=== PATIENT | female | born 1995 | race Caucasian/White ===

== ENCOUNTER 2020-06-11 18:29 | Emergency (ER) | payer SELFPAY ==
[2020-06-11 18:30] VITALS: BP 151/114; PULSE 97; RESP 18; TEMP 36.4; O2SAT 100; BMI 24.7
--- NOTE | 2020-06-11 18:37 | W.ED.SKABFB ---
HPI - Skin/Abscess/Foreign Bdy General: Chief complaint: Skin/Abscess/Foreign Body Stated complaint: rash Time Seen by Provider: 06/11/20 18:32 Source: patient Mode of arrival: ambulatory Limitations: no limitations History of Present Illness: HPI narrative: Patient is a 25-year-old female who presents to ED today for evaluation of a rash. Patient tells me earlier today she began noticing some itching to the back of her neck and states throughout the day she has progressed to having a full body pruritic rash. Patient cannot identify any household, chemical, environmental, work exposures that she could have been allergic to. She is not having any facial or oral swelling, difficulty breathing, difficulty swallowing. She has no other complaints apart from the rash at this time. MD complaint: rash Onset (ago): hour(s) Tetanus up to date: yes Location: generalized Severity: severe Quality: pruritic Pain Consistency: constant Relieving factors: none Exacerbating factors: none Context: none Associated symptoms: Reports no associated symptoms; Deny chills, fever(s), nausea or vomiting Treatments prior to arrival: none Review of Systems Const: Denies: fever(s), chills, body aches, fatigue, malaise or diaphoresis Eyes: Denies: change in vision ENMT: Denies: odynophagia, swelling of lips/tongue, oral sores, nasal congestion or sinus pain Card: Denies: chest pain Resp: Denies: dyspnea GI: Denies: nausea or vomiting Musc: Denies: neck pain, back pain or extremity pain Skin/Breast: Reports: rash and pruritus Neuro: Denies: headache(s) Physical Exam Const: COMMON NORMALS: average body habitus, patient oriented x3, no limitations, healthy appearing, alert and well nourished GENERAL APPEARANCE: cooperative and in distress (diffuse pruritic rash) ORIENTATION/CONSCIOUSNESS: Yes oriented to person, Yes oriented to place and Yes oriented to time HENMT: COMMON NORMALS: normocephalic and atraumatic HEAD & SCALP: normocephalic and atraumatic Eye: GENERAL EYE: appearance normal, both eyes and all related structures Neck/C-Spine: COMMON NORMALS: full ROM and no lymphadenopathy GENERAL: Yes normal visual inspection Resp: COMMON NORMALS: normal respiratory effort and clear to auscultation bilaterally AUSCULTATION: clear to auscultation bilaterally Cardio: COMMON NORMALS: regular rate and regular rhythm RATE: regular rate RHYTHM: regular rhythm Neuro: COMMON NORMALS: patient oriented x3 SENSORIUM/ORIENTATION: Yes alert, Yes oriented to person, Yes oriented to place and Yes oriented to time Skin: NARRATIVE SKIN EXAM: diffuse urticaria Course Vital Signs: Vital signs: Vital Signs Temperature 97.5 F L 06/11/20 18:30 Pulse Rate 97 06/11/20 18:30 Respiratory Rate 18 06/11/20 18:30 Blood Pressure 151/114 06/11/20 18:30 Pulse Oximetry 100 06/11/20 18:30 MDM - Skin/Abscess/Foreign Bdy MDM Narrative: Medical decision making narrative: Patient's rash and itchiness improved after benadryl, solu-medrol, and pepcid. Patient is stable for DC at this time. Discharge Plan Discharge Patient Disposition: Home Clinical Impression: Urticaria Condition: Stable Discharge Orders: Discharge Order (Routine); Ordered 06/11/20 Ordered By: Gem Márquez Referrals: Socrates Cisneros MD [Primary Care Provider] - Patient Instructions: Urticaria, Urticaria (ED) Activity Restrictions/Additional Instructions: As discussed you can continue taking 50 mg Benadryl every 6 hours as needed for rash and itching. Please follow-up with your primary care provider in 3 to 4 days for continued rash. Return to the emergency department for any blister formation, difficulty swallowing, difficulty breathing, swelling to your lips or mouth, fevers, any other concerns you may have. Coding Level of Care Code ED Safety Compliance Specialist for Cherylg Fwd Exam Detailed
[2020-06-11] MEDS: famotidine 20 mg/2 mL INJ 40 MG IVP (19:05)
[2020-06-11] MEDS: diphenhydrAMINE 50 mg/mL SDV 1mL IVP (19:05)
[2020-06-11 19:55] VITALS: BP 145/94; PULSE 75; RESP 14; O2SAT 100
== END 2020-06-11 19:56 | disposition home or self-care (01) ==
PROVIDERS: Emergency Provider Physician Assistant; PCP Family Medicine
DX: L50.9 Urticaria, unspecified (principal)
CPT/HCPCS: 12345; 96374; 96375; 99282; 99283; J1200; J2930; J3490

== ENCOUNTER 2020-06-13 14:12 | Emergency (ER) | payer SELFPAY ==
[2020-06-13 14:15] VITALS: PULSE 81; RESP 16; TEMP 36.6; O2SAT 99; BMI 24.7
--- NOTE | 2020-06-13 14:23 | ED_ITS ---
HPI - Allergic Reaction General: Chief complaint: Allergic Reaction Stated complaint: RASH Time Seen by Provider: 06/13/20 14:14 History of Present Illness: HPI narrative: Patient seen here at the ER Thursday treated for urticaria was given a shot of steroids place [id number] Benadryl patient seen in urgent care today patient says she is not any better having abdominal pain which she said she has had for about a month gets sick after eating about an hour or 2 afterwards. Patient still having hives itching everywhere. Has not found the source of what might be causing her urticaria. Patient says she just uncomfortable. complaint: allergic reaction and hives Onset (ago): day(s) Exposure: unknown Associated symptoms: Reports abdominal pain (For the last month she said she just take 1 or 2 bites and would get sick to her stomach complains about pain upper abdomen), itching and rash Severity: moderate Treatment prior to arrival: benadryl and steroids Previous Allergic Reaction History: prior ED visit(s) Review of Systems Const: Denies: fever(s), chills or body aches Eyes: Denies: change in vision or blurry vision ENMT: Denies: throat pain or nasal congestion Card: Denies: chest pain or dyspnea on exertion Resp: Denies: dyspnea, productive cough or non-productive cough GI: Reports: abdominal pain (For the last month she said she just take 1 or 2 bites and would get sick to her stomach complains about pain upper abdomen) : Reports: other (Is sexually active not on control) Musc: Denies: extremity pain Skin/Breast: Reports: rash and pruritus Neuro: Denies: headache(s) Psych: Denies: anxiety or depression Jaime/Lymph: Denies: easy bruising [facility] ED PFSH: Social History (Updated 06/13/20 @ 13:56 by Devorah Gutiérrez LPN) Smoking and tobacco status: never smoked Physical Exam Const: COMMON NORMALS: no acute distress, average body habitus and patient norman ented x3 HENMT: COMMON NORMALS: normocephalic HEAD & SCALP: normal to inspection and normocephalic FACE & SINUS: normal facial exam Eye: COMMON NORMALS: conjunctivae normal GENERAL EYE: appearance normal, both eyes and all related structures CONJUNCTIVA: Yes conjunctivae normal Neck/C-Spine: COMMON NORMALS: no JVD Chest: COMMONS NORMALS: normal inspection of the chest Resp: COMMON NORMALS: normal respiratory effort and clear to auscultation bilaterally AUSCULTATION: clear to auscultation bilaterally Cardio: COMMON NORMALS: no JVD, regular rate and regular rhythm RATE: regular rate RHYTHM: regular rhythm GI: COMMON NORMALS: Normal to inspection, nondistended, normoactive bowel sounds present Extremity: COMMON NORMALS: normal to inspection and full ROM Neuro: COMMON NORMALS: patient oriented x3 Skin: NARRATIVE SKIN EXAM: Has a large amount of maculopapular red rash scattered about strongly resembling hives or urticaria Course Vital Signs: Vital signs: Vital Signs Temperature 97.8 F 06/13/20 14:15 Pulse Rate 81 06/13/20 14:15 Respiratory Rate 16 06/13/20 14:15 Pulse Oximetry 99 06/13/20 14:15 Discharge Plan Discharge Prescriptions: No Action No Known Home Medications RF: 0 Coding Level of Care Code ED Predatory Animal Trapper for Vane Santizo
[2020-06-13 14:29] VITALS: BP 133/86; PULSE 82; RESP 16; O2SAT 99
--- NOTE | 2020-06-13 14:29 | CTR_ITS ---
PROCEDURE INFORMATION: Exam: CT Abdomen And Pelvis With Contrast Exam date and time: 06/13/2020 3:02 PM Age: 25 years old Clinical indication: Abdominal pain; Additional info: Abd pain TECHNIQUE: Imaging protocol: Computed tomography of the abdomen and pelvis with intravenous contrast. Radiation optimization: All CT scans at this facility use at least one of these dose optimization techniques: automated exposure control; mA and/or kV adjustment per patient size (includes targeted exams where dose is matched to clinical indication); or iterative reconstruction. Contrast material: OMNI 300; Contrast volume: 95 ml; Contrast route: INTRAVENOUS (IV); COMPARISON: CT Abdomen/Pelvis Renal [id number] 04/17/2015 11:34 PM RADIATION DOSE METRICS: Total DLP (mGy-cm): 509.14 FINDINGS: Liver: Normal. No mass. Gallbladder and bile ducts: Normal. No calcified stones. No ductal dilation. Pancreas: Normal. No ductal dilation. Spleen: Normal. No splenomegaly. Adrenals: Normal. No mass. Kidneys and ureters: One or more focal cortical defects in the right kidney, representing sequela from previous infection or infarction. One or more focal cortical defects in the left kidney, representing sequela from previous infection or infarction. Stomach and bowel: Unremarkable. No obstruction. No mucosal thickening. Appendix: Normal appendix. Intraperitoneal space: Unremarkable. No free air. No significant fluid collection. Vasculature: Unremarkable. No abdominal aortic aneurysm. Lymph nodes: Unremarkable. No enlarged lymph nodes. Bladder: Unremarkable as visualized. Reproductive: Unremarkable as visualized. Bones/joints: Unremarkable. No acute fracture. Soft tissues: Unremarkable. CT/CT abdomen pelvis w con* [id number] IMPRESSION: 1. One or more focal cortical defects in the right kidney, representing sequela from previous infection or infarction. 2. One or more focal cortical defects in the left kidney, representing sequela from previous infection or infarction. Radiation Dose CTDIVOL = (mGy): DLP = 509.14 (mGy-cm)
[2020-06-13] MEDS: hyDROXYzine 25 mg Capsule PO (14:42)
[2020-06-13] MEDS: sodium chloride 0.9% 1,000 ML 999 ML IV (14:55)
[2020-06-13 15:22] LABS: Basophils % 0.2 %; Eosinophils % 0.2 %; Hemoglobin 13.7 g/dL (11.5-15.3); Lymphocytes # 2.1 10^3/uL (0.8-4.8); Lymphocytes % 17.1 %; Mean Corpuscular HGB Conc 32.6 g/dL (30.0-36.0); Mean Corpuscular Hemoglobin 29.7 pg (28.0-34.0); Mean Corpuscular Volume 90.9 fL (81-99); Mean Platelet Volume 10.3 fL (7.4-10.4); Monocytes # 0.5 10^3/uL (0.2-0.9); Monocytes % 4.1 %; Neutrophils # 9.49 10^3/uL (1.8-7.7); Neutrophils % 77.9 %; Nucleated Red Blood Cells % 0 %; Platelet Count 243 10^3/cmm (130-400); Red Blood Count 4.62 10^6/uL (4.1-5.3); Red Cell Distribution Width 12.3 % (12.1-15.1); White Blood Count 12.2 10^3/uL (4.0-10.0)
[2020-06-13 15:26] LABS: Add Urine Microscopic? YES; Bilirubin Urine Neg (NEGATIVE); Blood Urine 2+ (Negative); Glucose Urine UA Norm (Normal); Ketones Urine Negative (Negative); Nitrate Urine Negative (Negative); Protein Urine Neg (Negative); Specific Gravity, Urine 1.025 (1.005-1.030); Urine Appearance Cloudy (CLEAR); Urine Color Yellow (Yellow); Urobilinogen Urine Norm (Negative); pH Urine 5 (5-7)
[2020-06-13 15:34] LABS: Leukocyte Esterase Urine 2+ (Negative)
[2020-06-13 15:35] LABS: Add Urine Culture? No; Bacteria Urine 3+; WBC Urine 25-40 /hpf (0-5)
[2020-06-13 15:47] VITALS: BP 136/97; PULSE 76; RESP 15; O2SAT 98
[2020-06-13 15:49] LABS: HCG, Serum Qual Negative (Negative)
[2020-06-13 15:51] LABS: Alanine Aminotransferase 17 U/L (0-33); Albumin Level 4.3 g/dL (3.5-5.2); Alkaline Phosphatase 55 IU/L (35-105); Anion Gap 13.9 (5-19); Aspartate Amino Transferase 14 U/L (0-32); Blood Urea Nitrogen 16 mg/dL (6-20); Calcium 8.9 mg/dL (8.5-10.5); Carbon Dioxide 25 mmol/L (22-29); Chloride 105 mmol/L (98-107); Globulin 3.1 g/dL (1.3-4.6); Glomerular Filtration Rate 49.5 mL/min (90-130); Glucose 90 mg/dL (65-115); Lipase 16 U/L (13-60); Osmolality Calculated 286 mOsm/kg (285-295); Potassium 3.9 mmol/L (3.5-5.1); Sodium 140 mmol/L (136-145); Total Bilirubin 0.8 mg/dL (0.15-1.2); Total Protein 7.4 g/dL (6.6-8.7)
[2020-06-13] MEDS: iohexol 300 mg/mL 100 mL Btl IV (16:26)
[2020-06-13 17:07] VITALS: BP 146/82; PULSE 80; RESP 16; O2SAT 97
== END 2020-06-13 17:07 | disposition home or self-care (01) ==
PROVIDERS: Emergency Provider Nurse Practitioner Family; PCP Family Medicine
DX: R21 Rash and other nonspecific skin eruption (principal)
CPT/HCPCS: 12345; 36415; 74177; 80053; 81001; 83690; 84703; 85025; 96361; 96374; 96375; 99283; J2930; J7030; Q9967

== ENCOUNTER → 2020-10-17 15:30 | Outpatient (BNVA) | payer MEDICAID, SELFPAY | PROVIDERS: PCP Family Medicine; Visit Provider Obstetrics & Gynecology | DX: Z12.4 Encounter for screening for malignant neoplasm of cervix (principal) | CPT/HCPCS: 88175 ==

== ENCOUNTER 2020-10-24 03:54 | Emergency (ER) | payer MEDICAID, SELFPAY ==
[2020-10-24 03:59] VITALS: BP 166/105; PULSE 85; RESP 16; TEMP 36.8; O2SAT 98; BMI 21.1
--- NOTE | 2020-10-24 04:06 | W.ED.ABDPA2 ---
HPI - Abdominal Pain General: Chief Complaint: Abdominal Pain Stated Complaint: ab pain, cramps, just found out preg Time Seen by Provider: 10/24/20 03:57 Source: patient Mode of arrival: ambulatory Limitations: no limitations History of Present Illness: HPI narrative: 25-year-old female who is roughly 67 weeks . She states she has been having abdominal cramping over the last week and has not been able to get into an OB until week. States her pain is a 4 out of 10 currently. She has had nausea over the last 2 to 3 weeks with no vomiting. She denies any vaginal bleeding or discharge. Denies any worsening improving factors. Associated Symptoms: Denies chills, dysuria and fever(s) Review of Systems Const: Denies: fever(s), chills, body aches or change in appetite Eyes: Denies: blurry vision or eye discomfort ENMT: Denies: throat pain or dental pain Card: Denies: chest pain Resp: Denies: dyspnea GI: Reports: abdominal pain : Denies: dysuria Musc: Denies: neck pain or back pain Skin/Breast: Denies: rash Neuro: Denies: headache(s) Psych: Denies: depression Jaime/Lymph: Denies: easy bruising All/Imm: Denies: urticaria PFSH ED PFSH: Medical History (Updated 10/24/20 @ 05:08 by Amol Bautista MD) No pertinent past medical history Denies diabetes, asthma, hypertension, seizures, DVT/PE PCP: Dr. Cisneros Surgical History (Updated 10/21/20 @ 08:49 by Mavis Rm MD) No history of previous surgery Family History (Updated 10/21/20 @ 08:49 by Mavis Rm MD) Grandmother Diabetes paternal Family/Other Uterine cancer maternal great aunt, diagnosed in her 50s Denies family history of Colon cancer Ovarian cancer Heart disease Hyperlipidemia Breast cancer Hypertension Thyroid condition Stroke Social History (Updated 06/13/20 @ 13:56 by Devorah Gutiérrez LPN) Smoking and tobacco status: never smoked Physical Exam Const: COMMON NORMALS: no acute distress, patient oriented x3 and healthy appearing HENMT: COMMON NORMALS: normocephalic and atraumatic HEAD & SCALP: normocephalic and atraumatic Eye: COMMON NORMALS: Equal, round and reactive pupils present and EOMs intact bilaterally PUPIL: Yes Equal, round and reactive pupils present Neck/C-Spine: COMMON NORMALS: full ROM and supple Chest: COMMONS NORMALS: normal inspection of the chest and normal palpation of entire chest wall Resp: COMMON NORMALS: normal respiratory effort, No retractions, No use of accessory muscles and clear to auscultation bilaterally AUSCULTATION: clear to auscultation bilaterally Cardio: COMMON NORMALS: regular rate, regular rhythm and No murmurs present (Cardio) RATE: regular rate RHYTHM: regular rhythm GI: COMMON NORMALS: Normal to inspection, nondistended, normoactive bowel sounds present, Soft to palpation, non-tender and no masses PALPATION: Yes Soft to palpation Extremity: COMMON NORMALS: normal to inspection and full ROM Neuro: COMMON NORMALS: patient oriented x3, moves all extremities and no focal motor deficits Psych: COMMON NORMALS: mental status grossly normal, Normal thought process present and cooperative THOUGHT PROCESS: Normal thought process present Skin: COMMON NORMALS: no rashes or lesions noted and no wounds GENERAL SKIN EXAM: no rashes or lesions noted Course Vital Signs: Vital signs: Vital Signs Temperature 98.2 F 10/24/20 03:59 Pulse Rate 85 10/24/20 03:59 Respiratory Rate 16 10/24/20 03:59 Blood Pressure 166/105 10/24/20 03:59 Pulse Oximetry 98 10/24/20 03:59 MDM - Abdominal Pain MDM Narrative: Medical decision making narrative: Yessica presents here in early . Ultrasound showed a gestational sac. She is to have a repeat quantitative in 2 to 4 days. She also has a urinary tract infection will treat with Keflex. She had no vomiting but has had nausea and we will treat her with Reglan. She is return if worsening. Lab Data: Labs: Lab Results 10/24/20 10/24/20 10/24/20 Range/Units 04:10 04:10 04:10 WBC 8.9 (4.0-10.0) 10^3/ uL RBC 4.17 (4.1-5.3) 10^6/u L Hgb 12.3 (11.5-15.3) g/dL Hct 37.0 (37.0-47.0) % MCV 88.7 (81-99) fL MCH 29.5 (28.0-34.0) pg MCHC 33.2 (30.0-36.0) g/dL RDW 12.0 L (12.1-15.1) % Plt Count 224 (130-400) 10^3/c mm MPV 10.5 H (7.4-10.4) fL Neut % (Auto) 63.2 % Lymph % (Auto) 28.4 % Freestone % (Auto) 7.0 % Eos % (Auto) 0.8 % Baso % (Auto) 0.3 % Neut # (Auto) 5.59 (1.8-7.7) 10^3/u L Lymph # (Auto) 2.5 (0.8-4.8) 10^3/u L Freestone # (Auto) 0.6 (0.2-0.9) 10^3/u L Eos # (Auto) 0.1 (0.0-0.8) 10^3/u L Baso # (Auto) 0.0 (0.0-0.1) 10^3/u L Nucleated RBC % (a uto) 0 % Nucleated RBCs # 0.0 /100WBC Sodium 136 (136-145) mmol/L Potassium 3.2 L (3.5-5.1) mmol/L Chloride 103 (98-107) mmol/L Carbon Dioxide 22 (22-29) mmol/L Anion Gap 14.2 (5-19) BUN 13 (6-20) mg/dL Creatinine 0.8 (0.5-0.9) mg/dL GFR Calculation 86.7 L (90-130) mL/min Glucose 93 (65-115) mg/dL Calculated Osmolal ity 282 L (285-295) mOsm/k g Lactate (0.5-2.2) mmol/L Calcium 8.8 (8.5-10.5) mg/dL Total Bilirubin 0.6 (0.15-1.2) mg/dL AST 15 (0-32) U/L ALT 14 (0-33) U/L Alkaline Phosphata se 51 (35-105) IU/L Total Protein 7.1 (6.6-8.7) g/dL Albumin 4.2 (3.5-5.2) g/dL Globulin 2.9 (1.3-4.6) g/dL Lipase 31 (13-60) U/L Ser , Cristofer i-Qnt 2268.00 mIU/mL Urine Color Yellow (Yellow) Urine Appearance Hazy A (CLEAR) Urine pH 5.0 (5-7) Ur Specific Gravit y 1.020 (1.005-1.030) Urine Protein Neg (Negative) Urine Glucose (UA) Norm (Normal) Urine Ketones Negative (Negative) Urine Blood 2+ H (Negative) Urine Nitrate Positive H (Negative) Urine Bilirubin Neg (Negative) Urine Urobilinogen Norm (Negative) mg/dL Ur Leukocyte Celia ase 2+ H (Negative) Urine RBC 0-4 H (0-2) /hpf Urine WBC 15-25 H (0-5) /hpf Ur Squamous Epith Cells 5-10 H (0-5) /hpf Amorphous Sediment Not Reportable Urine Bacteria 3+ H (NONE) /hpf 10/24/20 Range/Units 04:35 WBC (4.0-10.0) 10^3/ uL RBC (4.1-5.3) 10^6/u L Hgb (11.5-15.3) g/dL Hct (37.0-47.0) % MCV (81-99) fL MCH (28.0-34.0) pg MCHC (30.0-36.0) g/dL RDW (12.1-15.1) % Plt Count (130-400) 10^3/c mm MPV (7.4-10.4) fL Neut % (Auto) % Lymph % (Auto) % Freestone % (Auto) % Eos % (Auto) % Baso % (Auto) % Neut # (Auto) (1.8-7.7) 10^3/u L Lymph # (Auto) (0.8-4.8) 10^3/u L Freestone # (Auto) (0.2-0.9) 10^3/u L Eos # (Auto) (0.0-0.8) 10^3/u L Baso # (Auto) (0.0-0.1) 10^3/u L Nucleated RBC % (a uto) % Nucleated RBCs # /100WBC Sodium (136-145) mmol/L Potassium (3.5-5.1) mmol/L Chloride (98-107) mmol/L Carbon Dioxide (22-29) mmol/L Anion Gap (5-19) BUN (6-20) mg/dL Creatinine (0.5-0.9) mg/dL GFR Calculation (90-130) mL/min Glucose (65-115) mg/dL Calculated Osmolal ity (285-295) mOsm/k g Lactate 0.5 (0.5-2.2) mmol/L Calcium (8.5-10.5) mg/dL Total Bilirubin (0.15-1.2) mg/dL AST (0-32) U/L ALT (0-33) U/L Alkaline Phosphata se (35-105) IU/L Total Protein (6.6-8.7) g/dL Albumin (3.5-5.2) g/dL Globulin (1.3-4.6) g/dL Lipase (13-60) U/L Ser , Cristofer i-Qnt mIU/mL Urine Color (Yellow) Urine Appearance (CLEAR) Urine pH (5-7) Ur Specific Gravit y (1.005-1.030) Urine Protein (Negative) Urine Glucose (UA) (Normal) Urine Ketones (Negative) Urine Blood (Negative) Urine Nitrate (Negative) Urine Bilirubin (Negative) Urine Urobilinogen (Negative) mg/dL Ur Leukocyte Celia ase (Negative) Urine RBC (0-2) /hpf Urine WBC (0-5) /hpf Ur Squamous Epith Cells (0-5) /hpf Amorphous Sediment Urine Bacteria (NONE) /hpf Discharge Plan Discharge Patient Disposition: Home Clinical Impression: Acute cystitis Qualifiers: Hematuria presence: without hematuria Qualified Code(s): N30.00 - Acute cystitis without hematuria Qualifiers: Weeks of gestation: less than 8 weeks Qualified Code(s): Z3A.01 - Less than 8 weeks gestation of Condition: Stable Prescriptions: New Keflex 500 mg capsule 500 mg PO Q6H 7 Days Qty: 28 RF: 0 Reglan 10 mg tablet 10 mg PO Q6H PRN (Reason: nausea and vomiting) Qty: 20 RF: 0 Discharge Orders: Discharge ED (Routine); Ordered 10/24/20 Ordered By: Amol Bautista Referrals: Socrates Cisneros MD [Primary Care Provider] - Discharge Diet: Advance as tolerated Discharge Activity: Resume usual activity Patient Instructions: (ED), Urinary Tract Infection in Women (ED) Coding Level of Care Code ED Battery Container Tester Aluminum for Vane Fwd Exam Comprehensive
--- NOTE | 2020-10-24 04:18 | US_ITS ---
WS: [id number] ULTRASOUND EARLY TECHNIQUE: Transabdominal sonography of the pelvis was performed. Followed by transvaginal sonography to better evaluate the uterus and ovaries. CLINICAL INFORMATION: abdominal pain LMP: 09/12/2020 Beta hCG: Unknown. COMPARISON: None. FINDINGS: UTERUS AND GESTATIONAL SAC Intrauterine gestations: Intrauterine gestational sac. Cardiac activity not yet visualized in this ve ry early . Estimated gestational age: 5w2d Subchorionic hemorrhage: None. OVARIES Right ovary: Normal. Left ovary: Left ovarian cyst measuring 1.9 x 1.8 cm FREE FLUID None. US/US OB lmt with transvaginal IMPRESSION: 1. Intrauterine gestational sac. Cardiac activity not yet visualized in this v rodolfo early . Recommend short interval follow-up.. 2. Estimated gestational age; 5w2d. Estimated delivery June 24, 2021 3. Simple left ovarian cyst. Normal right ovary.
[2020-10-24 04:27] LABS: Basophils % 0.3 %; Eosinophils # 0.1 10^3/uL (0.0-0.8); Eosinophils % 0.8 %; Hemoglobin 12.3 g/dL (11.5-15.3); Lymphocytes # 2.5 10^3/uL (0.8-4.8); Lymphocytes % 28.4 %; Mean Corpuscular HGB Conc 33.2 g/dL (30.0-36.0); Mean Corpuscular Hemoglobin 29.5 pg (28.0-34.0); Mean Corpuscular Volume 88.7 fL (81-99); Mean Platelet Volume 10.5 fL (7.4-10.4); Monocytes # 0.6 10^3/uL (0.2-0.9); Neutrophils # 5.59 10^3/uL (1.8-7.7); Neutrophils % 63.2 %; Nucleated Red Blood Cells % 0 %; Platelet Count 224 10^3/cmm (130-400); Red Blood Count 4.17 10^6/uL (4.1-5.3); White Blood Count 8.9 10^3/uL (4.0-10.0)
[2020-10-24 04:57] LABS: Alanine Aminotransferase 14 U/L (0-33); Albumin Level 4.2 g/dL (3.5-5.2); Alkaline Phosphatase 51 IU/L (35-105); Anion Gap 14.2 (5-19); Aspartate Amino Transferase 15 U/L (0-32); Blood Urea Nitrogen 13 mg/dL (6-20); Calcium 8.8 mg/dL (8.5-10.5); Carbon Dioxide 22 mmol/L (22-29); Chloride 103 mmol/L (98-107); Globulin 2.9 g/dL (1.3-4.6); Glomerular Filtration Rate 86.7 mL/min (90-130); Glucose 93 mg/dL (65-115); Lipase 31 U/L (13-60); Osmolality Calculated 282 mOsm/kg (285-295); Potassium 3.2 mmol/L (3.5-5.1); Sodium 136 mmol/L (136-145); Total Bilirubin 0.6 mg/dL (0.15-1.2); Total Protein 7.1 g/dL (6.6-8.7)
[2020-10-24 04:58] LABS: Lactate (Lactic Acid level) 0.5 mmol/L (0.5-2.2)
[2020-10-24 05:05] LABS: Protein Urine Neg (Negative); Urine Appearance Hazy (CLEAR); Urine Color Yellow (Yellow)
[2020-10-24 05:06] LABS: Add Urine Culture? Yes; Add Urine Microscopic? YES; Bacteria Urine 3+ /hpf; Bilirubin Urine Neg (Negative); Blood Urine 2+ (Negative); Glucose Urine UA Norm (Normal); Ketones Urine Negative (Negative); Leukocyte Esterase Urine 2+ (Negative); Nitrate Urine Positive (Negative); RBC Urine 0-4 /hpf (0-2); Urobilinogen Urine Norm (Negative); WBC Urine 15-25 /hpf (0-5)
[2020-10-24] MEDS: cefTRIAXone 1,000 MG in sodium chloride 0.9% (plus) 50 ML 100 MG IV (05:14)
[2020-10-24 05:15] VITALS: BP 123/87; PULSE 78; RESP 16; O2SAT 99
== END 2020-10-24 05:27 | disposition home or self-care (01) ==
PROVIDERS: Emergency Provider Emergency Medicine; PCP Family Medicine
DX: O23.11 Infections of bladder in pregnancy, first trimester (principal); Z3A.01 Less than 8 weeks gestation of pregnancy
CPT/HCPCS: 12345; 76815; 76817; 80053; 81001; 83605; 83690; 84702; 85025; 87077; 87086; 87186; 96374; 99283; J0696

== ENCOUNTER 2021-05-10 09:54 | Outpatient (CLI) | payer MEDICAID, SELFPAY ==
[2021-05-10 10:00] VITALS: BMI 25.7
[2021-05-10 10:16] VITALS: BP 145/102; PULSE 86; TEMP 36.3
[2021-05-10 10:32] VITALS: BP 144/103; PULSE 86
[2021-05-10 10:47] VITALS: BP 143/99; PULSE 85
[2021-05-10 10:55] VITALS: BP 143/99; PULSE 85; RESP 18; TEMP 36.6
[2021-05-10 14:02] VITALS: TEMP 36.6
[2021-05-10 14:03] VITALS: BP 122/72; PULSE 56
== END 2021-05-10 10:55 | disposition home or self-care (01) ==
LOC: OPOB 10:02 → OBGYN 10:02
PROVIDERS: PCP Family Medicine; Visit Provider Family Medicine
DX: O46.90 Antepartum hemorrhage, unspecified, unspecified trimester (principal); Z3A.00 Weeks of gestation of pregnancy not specified; R10.9 Unspecified abdominal pain
CPT/HCPCS: 99211

== ENCOUNTER 2021-06-19 08:16 | Inpatient (IN) | payer MEDICAID, SELFPAY ==
[2021-06-19] VITALS (130 sets, daily range): BP systolic 110–181; BP diastolic 55–119; PULSE 67–98; RESP 15–20; TEMP 36.3–36.7; O2SAT 97–99; BMI 26.7
[2021-06-19 09:00] LABS: Basophils % 0.2 %; Eosinophils # 0.1 10^3/uL (0.0-0.8); Eosinophils % 1.1 %; Hematocrit 35.8 % (37.0-47.0); Hemoglobin 11.9 g/dL (11.5-15.3); Lymphocytes # 1.9 10^3/uL (0.8-4.8); Lymphocytes % 22.4 %; Mean Corpuscular HGB Conc 33.2 g/dL (30.0-36.0); Mean Corpuscular Hemoglobin 29.9 pg (28.0-34.0); Mean Corpuscular Volume 89.9 fl (81-99); Mean Platelet Volume 11.6 fL (7.4-10.4); Monocytes # 0.6 10^3/uL (0.2-0.9); Monocytes % 7.4 %; Neutrophils # 5.82 10^3/uL (1.8-7.7); Neutrophils % 68.2 %; Nucleated Red Blood Cells % 0 %; Platelet Count 173 10^3/cmm (130-400); Red Blood Count 3.98 10^6/uL (4.1-5.3); White Blood Count 8.5 10^3/uL (4.0-10.0)
[2021-06-19] MEDS: miSOPROStol 100 mcg tablet 25 MCG VAGINAL ×2 (09:00→13:13)
[2021-06-19] MEDS: labetalol 5 mg/mL SDV 20mL 20 MG IVP (09:17)
[2021-06-19 09:30] LABS: Alanine Aminotransferase 9 U/L (0-33); Albumin Level 3.4 g/dL (3.5-5.2); Alkaline Phosphatase 183 IU/L (35-105); Anion Gap 18.1 (5-19); Aspartate Amino Transferase 15 U/L (0-32); Blood Urea Nitrogen 9 mg/dL (6-20); Carbon Dioxide 19 mmol/L (22-29); Chloride 104 mmol/L (98-107); Globulin 3.3 g/dL (1.3-4.6); Glomerular Filtration Rate 100.4 mL/min (90-130); Glucose 77 mg/dL (65-115); Osmolality Calculated 281 mOsm/kg (285-295); Potassium 4.1 mmol/L (3.5-5.1); Sodium 137 mmol/L (136-145); Total Bilirubin 0.3 mg/dL (0.15-1.2); Total Protein 6.7 g/dL (6.6-8.7); Uric Acid 7.5 mg/dL (2.4-5.7)
[2021-06-19 10:29] LABS: Urine Creatinine 201 mg/dL (28-217)
[2021-06-19 10:32] LABS: UPRO/UCREAT Ratio 0.88 mg/mg CR; Urine Protein Random 177 mg/dL
[2021-06-19] MEDS: labetalol 5 mg/mL SDV 20mL 40 MG IVP (10:59)
[2021-06-19] MEDS: dextrose 5%-lactated ringers 1,000 ML 125 ML IV (12:54)
[2021-06-19] MEDS: magnesium sulfate premix 20 GM/500 ML BAG IV (12:58)
[2021-06-19] MEDS: magnesium sulfate premix 2 GM/50 ML PIGGYBACK IV (12:58)
[2021-06-19] MEDS: labetalol 5 mg/mL SDV 20mL 80 MG IVP (13:21)
[2021-06-19] MEDS: hyDRALAzine 20 mg/mL INJ 1 mL 5 MG IVP (14:04)
[2021-06-19] MEDS: hyDROXYzine 25 mg Capsule 50 MG PO (14:04)
[2021-06-19] MEDS: fentaNYL 50 mcg/mL INJ 2mL IVP ×3 (14:09→17:32)
[2021-06-19] MEDS: dextrose 5%-lactated ringers 1,000 ML 100 ML IV (18:11)
[2021-06-19] MEDS: ondansetron 2 mg/ML SDV 2 mL 4 MG IVP (18:13)
[2021-06-19] MEDS: oxytocin 30 UNIT/500 ML BAG 600 UNIT IV (18:30)
[2021-06-19] MEDS: lidocaine 2% INJ 20 mL INJECTION (18:30)
--- NOTE | 2021-06-19 19:10 | PC.NURSE ---
Physician at bedside assessing patient post delivery. MD gave verbal order for regular diet and for patient to try bland foods first for risk of nausea and vomiting.
--- NOTE | 2021-06-19 19:17 | PM.DELIVERY ---
Delivery Note: Date of delivery: June 19, 2021 Mom was admitted at 39 weeks and 1 day gestation for misoprostel cervical ripening for induction purposes secondary to gestational hypertension. Pre-Delivery Course: This patient was followed through her course by this physician. There is no significant problems through her course. Maternal blood type was O+ with antibody screen negative. Hepatitis B, hepatitis C, RPR and HIV were negative. Rubella was immune and group B strep was negative. She did begin having elevated blood pressure around 32 to 33 weeks gestation. She was placed on labetalol which generally controlled her blood pressure pretty well. However, when she was seen the day prior to the admission she was found to have elevated blood pressure with 1+ proteinuria although the urine was concentrated. After much discussion a decision was made to proceed with misoprostel cervical ripening and induction. She was placed in the hospital and given misoprostel 25 mcg on the morning of the delivery. She was given 2 doses of this and as her blood pressure remained elevated a preeclampsia profile was done which found her to have a positive urine protein to creatinine ratio indicating probable preeclampsia and the patient was started on magnesium. Labetalol did not bring her blood pressure down well enough and therefore she was given hydralazine which worked pretty well. The patient was having significant contractions after her second dose of misoprostel. She has spontaneous rupture membranes of clear fluid and then rapidly had dilatation with descent from -3 to approximately +1 station over just a few minutes. The fetus had a significant deceleration with that and some bradycardia therefore oxygen was placed. She was placed in the lithotomy position and after 1 push the little bit of a anterior rim of cervix went away quickly and she delivered by spontaneous vaginal delivery after 2 pushes. The 's head delivered at left occiput anterior position. The mouth and nose were suctioned at the perineum followed by delivery of the remainder the infant. There was a nuchal cord x1 which was easily unwound. The infant initially cried a little bit at but was very floppy and was placed on mother's abdomen where the umbilical cord was cut quickly and the was handed off to the nurses at the warmer. Infant was pretty floppy and had Apgars of 2, 7 and 9 at 1, 5 and 10 minutes respectively. Delivery: She was placed in the lithotomy position and after 1 push the little bit of a anterior rim of cervix went away quickly and she delivered by spontaneous vaginal delivery after 2 pushes. The infant's head delivered at left occiput anterior position. The mouth and nose were suctioned at the perineum followed by delivery of the remainder the . There was a nuchal cord x1 which was easily unwound. The infant initially cried a little bit at but was very floppy and was placed on mother's abdomen where the umbilical cord was cut quickly and the infant was handed off to the nurses at the warmer. There was a three-vessel cord. was pretty floppy and had Apgars of 2, 7 and 9 at 1, 5 and 10 minutes respectively. The was given positive pressure respirations for a very short time followed by blow-by oxygen. He perked up fairly quickly and was crying loudly by 10 minutes of age. There was, however some mild grunting. The delivered at 1824 with the placenta delivering intact at 1829. Examination of the vagina and perineum found her to have a small second-degree midline perineal laceration which was repaired using local 2% lidocaine anesthesia and Vicryl suture. After repair the vaginal vault was again evaluated with removal of several clots and the fundus was firm with no other active bleeding or lesions present. There were no other complications except for the rapid labor and low at 1 minute. Estimated blood loss was approximately 324 mL. A&P Assessment and plan (1) Gestational hypertension: Patient was started on magnesium for preeclampsia and will remain on magnesium for the next 24 hours or so. We will monitor blood pressure and going to go ahead and place her on hydralazine 25 mg p.o. 3 times daily with holding for low blood pressures. Status: Acute (2) Normal spontaneous vaginal delivery: Patient did well with labor and delivery process. We will follow for routine care and adjust orders as necessary. Status: Acute Coding Level of Care Code Acute Cover Stitch Machine Operator for [facility] Diagnoses Gestational hypertension O13.9 Normal spontaneous vaginal delivery O80
[2021-06-19] MEDS: benzocaine-menthol 78 gm Canister 1 SPRAY TOPICAL (20:56)
[2021-06-19] MEDS: ibuprofen 800 mg tablet PO (20:56)
[2021-06-19 22:02] LABS: Magnesium Level (OB Only) 3.9 mg/dL (5.0-7.5)
[2021-06-20] VITALS (28 sets, daily range): BP systolic 119–178; BP diastolic 69–107; PULSE 75–93; RESP 16–18; O2SAT 97–99
[2021-06-20] MEDS: HYDROcodone-acetaminophen 5-325 mg Tablet PO (01:45)
[2021-06-20] MEDS: dextrose 5%-lactated ringers 1,000 ML 125 ML IV ×2 (04:13→14:58)
[2021-06-20 05:10] LABS: Magnesium Level (OB Only) 3.6 mg/dL (5.0-7.5)
--- NOTE | 2021-06-20 08:18 | P.PN_ITS ---
ACCOUNTING MACHINE OPERATOR Subjective Subjective: Interval history: Patient is doing well at this time. She has had just mild lochia and is ambulating well. She has continued on magnesium and her blood pressure has overall been doing well. Magnesium levels are slightly low but I feel that were adequately controlling risk at this dose. Plan a full 24 hours of magnesium postdelivery so will discontinue this evening. Probably will need to observe overnight for blood pressure issues prior to discharge in the [facility]. Labor: Station: +3 Amniotic Membrane Status: Ruptured Monitor Mode: Palpation Contraction Pattern: Regular Status: Category II Vitals/I&O/Wt Last Vital Signs Temp 97.8 F 06/19/21 19:11 Pulse 77 06/20/21 07:38 Resp 17 06/20/21 06:30 BP 155/96 06/20/21 07:38 Pulse Ox 99 06/20/21 06:35 06/19/21 06/20/21 06/20/21 22:59 06:59 14:59 Intake Total 971.667 / 8261.345 3319 / 2092.500 Output Total 1336 / 1446 1850 / 3296 Balance -364.333 / -353.500 -850 / -1203.500 Weight last 48 hrs Weight 77.564 kg Physical Exam Const: COMMON NORMALS: no acute distress and healthy appearing Resp: COMMON NORMALS: normal respiratory effort, No retractions and clear to auscultation bilaterally; negative for No use of accessory muscles AUSCULTATION: clear to auscultation bilaterally Cardio: COMMON NORMALS: regular rate, regular rhythm and No murmurs present (Cardio) RATE: regular rate RHYTHM: regular rhythm GI: COMMON NORMALS: Normal to inspection, nondistended, normoactive bowel sounds present and Soft to palpation (Fundus is firm and well below the umbilicus.) PALPATION: Yes Soft to palpation (Fundus is firm and well below the umbilicus.) Extremity: COMMON NORMALS: no calf tenderness and no pedal edema Neuro: COMMON NORMALS: CN's II-XII intact bilaterally, no focal motor deficits and no sensory deficits noted Psych: COMMON NORMALS: mental status grossly normal, cooperative and normal affect Urinary Catheter Management^: [place]: Cath Placed During This Visit: yes, but has since been removed by the nurse Reason for Continuing Indwelling Catheter: Decision to DC Catheter Urinary Catheter Date of Insertion: 06/19/21 Urinary Catheter Time of Insertion: 13:10 Date Urinary Catheter Removed: 06/19/21 Time Urinary Catheter Discontinued: 18:20 Data : 06/19/21 08:35 06/19/21 08:35 A&P Assessment and plan (1) Normal spontaneous vaginal delivery: Continue routine care. Probable discharge in the morning. Status: Acute (2) Gestational hypertension: Continue intravenous magnesium for now for the next 24 hours. Plan probable discharge in the morning. Status: Acute Attestations Medical Necessity Statement*: Patient with preeclampsia and gestational hypertension is still on magnesium. Will probably wean that off this evening and will need to monitor overnight to maintain blood pressures prior to di scharge probably in the morning. Time Spent in Patient Care: less than 15 minutes Coding Level of Care Code Acute Agronomy Research Manager for Vane Fwd Diagnoses Normal spontaneous vaginal delivery O80 Gestational hypertension O13.9
[2021-06-20] MEDS: docusate sodium 100 mg Capsule PO (10:10)
[2021-06-20] MEDS: ibuprofen 800 mg tablet PO ×3 (10:10→20:17)
[2021-06-20] MEDS: prenatal vitamin Capsule 1 CAP PO (10:10)
[2021-06-20] MEDS: hyDRALAzine 25 mg Tablet PO ×3 (10:10→20:17)
[2021-06-20] MEDS: magnesium sulfate premix 20 GM/500 ML BAG IV (10:10)
[2021-06-20 16:15] LABS: Hematocrit 31.7 % (37.0-47.0); Hemoglobin 10.4 g/dL (11.5-15.3); Mean Corpuscular HGB Conc 32.8 g/dL (30.0-36.0); Mean Corpuscular Hemoglobin 30.4 pg (28.0-34.0); Mean Corpuscular Volume 92.7 fl (81-99); Mean Platelet Volume 11.3 fL (7.4-10.4); Platelet Count 154 10^3/cmm (130-400); Red Blood Count 3.42 10^6/uL (4.1-5.3); Red Cell Distribution Width 13.2 % (12.1-15.1); White Blood Count 10.1 10^3/uL (4.0-10.0)
[2021-06-20 16:54] LABS: Magnesium Level (OB Only) 3.4 mg/dL (5.0-7.5)
[2021-06-21 02:02] VITALS: BP 177/104; PULSE 83
[2021-06-21 02:17] VITALS: BP 178/105; PULSE 83
[2021-06-21] MEDS: hyDRALAzine 50 mg Tablet PO ×2 (02:29→09:08)
[2021-06-21] MEDS: HYDROcodone-acetaminophen 5-325 mg Tablet PO (02:33)
[2021-06-21 03:38] VITALS: BP 169/86; PULSE 93
[2021-06-21 03:59] VITALS: BP 137/77; PULSE 85
--- NOTE | 2021-06-21 07:28 | P.DS_ITS ---
Discharge Providers BONDING MOLDER Date of Admission: 06/19/21 08:16 Date of Discharge: 06/21/21 Attending Provider at Admission: Socrates Cisneros MD Attending Provider at Discharge: Socrates Cisneros MD Primary Care Provider: Socrates Cisneros MD Diagnoses at Discharge Discharge Diagnosis (1) Normal spontaneous vaginal delivery: Status: Acute (2) Gestational hypertension: Status: Acute Reason for Visit Reason for Visit: Hypertension Hospital Course Hospital Course Patient was admitted 2 days ago for induction secondary to gestational hypertension. She did well with magnesium and antihypertensives for labor and delivery process. Her blood pressure has remained elevated and appears to have now responded to hydralazine 50 mg 3 times daily. She maintained on magnesium sulfate for 24 hours after prior to discontinuing. She has had mild l ochia with no significant clots or cramping. She is ambulating well and tolerating a regular diet. Information Peripartum Data: Infant Delivery Method: Vaginal Physical Exam Const: COMMON NORMALS: no acute distress, healthy appearing and well nourished HENMT: COMMON NORMALS: moist oral mucous membranes Resp: COMMON NORMALS: normal respiratory effort, No retractions, No use of accessory muscles and clear to auscultation bilaterally AUSCULTATION: clear to auscultation bilaterally Cardio: COMMON NORMALS: regular rate, regular rhythm and No murmurs present (Cardio) RATE: regular rate RHYTHM: regular rhythm GI: COMMON NORMALS: Normal to inspection, nondistended, normoactive bowel soun ds present and Soft to palpation (Fundus is firm and well below the umbilicus.) PALPATION: Yes Soft to palpation (Fundus is firm and well below the u mbilicus.) Extremity: COMMON NORMALS: normal to inspection, full ROM, capillary refill normal, no calf tenderness and no pedal edema Neuro: COMMON NORMALS: no focal motor deficits and no sensory deficits noted Psych: COMMON NORMALS: mental status grossly normal, cooperative and normal affect Urinary Catheter Management^: [place]: Cath Placed During This Visit: yes, but has since been removed by the nurse Reason for Continuing Indwelling Catheter: Decision to DC Catheter Urinary Catheter Date of Insertion: 06/19/21 Urinary Catheter Time of Insertion: 13:10 Date Urinary Catheter Removed: 06/19/21 Time Urinary Catheter Discontinued: 18:20 Discharge Data Data Completed and Pending: Labs from last 24 hours 06/20/21 06/20/2106/20/21 15:50 15:50 10:15 WBC 10.1 H RBC 3.42 L Hgb 10.4 L Hct 31.7 L MCV 92.7 MCH 30.4 MCHC 32.8 RDW 13.2 Plt Count 154 MPV 11.3 H Magnesium 3.4 L* 3.0 L* Vitals: Last Vital Signs Temp 97.8 F 06/19/21 19:11 Pulse 85 06/21/21 03:59 Resp 17 06/20/21 06:30 BP 137/77 06/21/21 03:59 Pulse Ox 99 06/20/21 06:35 Discharge Plan Discharge Patient Disposition: Home Condition: Stable Prescriptions: New ibuprofen 800 mg Tablet 800 mg PO TID Qty: 90 RF: 1 hydralazine 50 mg Tablet 50 mg PO TID Qty: 90 RF: 1 docusate sodium 100 mg Capsule 100 mg PO BID Qty: 60 RF: 1 -U 106.5-1 mg Capsule 1 cap PO DAILY Qty: 90 RF: 2 Discontinued labetalol 200 mg Tablet 200 mg PO BID RF: 0 ranitidine HCl 150 mg Tablet 150 mg PO BEDTIME RF: 0 Discharge Orders: Discharge Order (Routine); Ordered 06/21/21 Ordered By: Socrates Cisneros Referrals: Socrates Cisneros MD [Primary Care Provider] - 6 Weeks (Will check BP at the office next week.) Discharge Diet: Usual diet Discharge Activity: Resume usual activity Patient Instructions: Depression (GEN), Vaginal Delivery (DC), Pre- eclampsia and Eclampsia (GEN), Bleeding (DC), OB Discharge Report, OB Food/Drug Interaction Guide, Opioid Safety, OB Home Care, OB Proud Parent Packet Discharge Attestations BONDING MOLDER Time Spent in Discharge Care*: less than 30 min Specific Discharge Activities: Specific discharge activities: educating patient, documenting/other paperwork and evaluating patient/reviewing data Coding Level of Care Code Acute Senior Supplier Quality Engineer for Chg Fwd Diagnoses Normal spontaneous vaginal delivery O80 Gestational hypertension O13.9
--- NOTE | 2021-06-21 08:02 | PC.NURSE ---
note This mom is planning to breast and bottle feed. She did not want help with and had no questions for me. Contact information provided.
[2021-06-21 08:27] VITALS: BP 139/86; PULSE 90
[2021-06-21] MEDS: prenatal vitamin Capsule 1 CAP PO (09:08)
[2021-06-21] MEDS: docusate sodium 100 mg Capsule PO (09:08)
[2021-06-21] MEDS: ibuprofen 800 mg tablet PO (09:08)
[2021-06-21 09:44] VITALS: BP 159/104; PULSE 87; RESP 14
== END 2021-06-21 10:20 | disposition home or self-care (01) | DRG 807 ==
LOC: OPOB 08:16 → OBGYN 08:16
PROVIDERS: Admitting Provider Family Medicine; PCP Family Medicine; Visit Provider Family Medicine
DX: O14.94 Unspecified pre-eclampsia, complicating childbirth (principal); Z37.0 Single live birth; Z3A.39 39 weeks gestation of pregnancy; O70.1 Second degree perineal laceration during delivery; O69.2XX0 Labor and delivery complicated by other cord entanglement, with compression, not applicable or unspecified; O76 Abnormality in fetal heart rate and rhythm complicating labor and delivery; O13.4 Gestational [pregnancy-induced] hypertension without significant proteinuria, complicating childbirth
CPT/HCPCS: 36415; 51702; 59409; 80053; 82570; 83735; 84156; 84550; 85025; 85027; 96374; 96375; J0360; J2405; J3010; J3475; J3490

== ENCOUNTER 2022-02-02 14:49 | Emergency (ER) | payer MEDICAID, SELFPAY ==
[2022-02-02 15:18] VITALS: BP 167/123; PULSE 78; RESP 16; TEMP 36.8; O2SAT 99; BMI 25.0
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
[2022-02-02 17:06] VITALS: BP 146/109; PULSE 74; RESP 18; O2SAT 99
--- NOTE | 2022-02-03 10:31 | DCPLANNER ---
Addendum entered by Jaquelin Still 02/12/22 21:24: Patient had a follow up appointment scheduled with ortho - patient did attend appointment. Addendum entered by Jaquelin Still 02/04/22 08:52: Patient has a follow up appointment scheduled for Thursday, February 05, 2022 at 10:[address] Poole at ortho. Clinic will call patient with appointment information. Original Note: field services manager had message to schedule a follow up appointment for patient with ortho. field services manager sent patients information to the front office staff at ortho. Patients information will be printed and reviewed. Clinic will call patient with appointment information.
== END 2022-02-02 17:08 | disposition home or self-care (01) ==
PROVIDERS: Emergency Provider Physician Assistant; PCP Family Medicine
DX: S62.356A Nondisplaced fracture of shaft of fifth metacarpal bone, right hand, initial encounter for closed fracture (principal); W22.09XA Striking against other stationary object, initial encounter; M79.89 Other specified soft tissue disorders
CPT/HCPCS: 73130; 99282

== ENCOUNTER → 2022-02-05 10:38 | Outpatient (BNVA) | payer MEDICAID, SELFPAY | PROVIDERS: PCP Family Medicine; Referring Provider Physician Assistant; Visit Provider Specialist | DX: S62.356A Nondisplaced fracture of shaft of fifth metacarpal bone, right hand, initial encounter for closed fracture (principal); S62.326A Displaced fracture of shaft of fifth metacarpal bone, right hand, initial encounter for closed fracture; W22.01XA Walked into wall, initial encounter; F17.210 Nicotine dependence, cigarettes, uncomplicated | CPT/HCPCS: 73130; 99203 ==

== ENCOUNTER 2022-02-05 15:57 | Outpatient (CLI) | payer MEDICAID, SELFPAY | END 2022-02-05 15:58 | disposition home or self-care (01) | LOC: SPT 15:58 | PROVIDERS: PCP Family Medicine; Visit Provider Specialist | DX: Z46.89 Encounter for fitting and adjustment of other specified devices (principal); S62.356D Nondisplaced fracture of shaft of fifth metacarpal bone, right hand, subsequent encounter for fracture with routine healing; X58.XXXD Exposure to other specified factors, subsequent encounter | CPT/HCPCS: 97760; L3984 ==

== ENCOUNTER → 2022-04-25 15:28 | Outpatient (BNVA) | payer MEDICAID, SELFPAY | PROVIDERS: PCP Family Medicine; Visit Provider Obstetrics & Gynecology | DX: Z01.419 Encounter for gynecological examination (general) (routine) without abnormal findings (principal); N89.8 Other specified noninflammatory disorders of vagina; N94.10 Unspecified dyspareunia; N93.0 Postcoital and contact bleeding | CPT/HCPCS: 87491; 87591; 87661 ==

== ENCOUNTER → 2022-05-21 12:59 | Outpatient (BNVA) | payer MEDICAID, SELFPAY | PROVIDERS: PCP Family Medicine; Visit Provider Obstetrics & Gynecology | DX: G89.29 Other chronic pain (principal); N94.10 Unspecified dyspareunia; R10.2 Pelvic and perineal pain | CPT/HCPCS: 76830; 76856 ==

== ENCOUNTER → 2022-05-23 11:31 | Outpatient (BNVA) | payer MEDICAID, SELFPAY | PROVIDERS: PCP Family Medicine; Visit Provider Obstetrics & Gynecology | DX: N89.8 Other specified noninflammatory disorders of vagina (principal); Z86.19 Personal history of other infectious and parasitic diseases | CPT/HCPCS: 87661 ==

== ENCOUNTER 2022-11-29 21:28 | Emergency (ER) | payer MEDICAID, SELFPAY ==
[2022-11-29 21:36] VITALS: BP 172/106; PULSE 81; RESP 16; TEMP 36.9; O2SAT 99
--- NOTE | 2022-11-29 21:52 | W.ED.ABDPA2 ---
HPI - Abdominal Pain General: Chief Complaint: Abdominal Pain Stated Complaint: abdomen pain, back pain Time Seen by Provider: 11/29/22 21:35 Source: patient Mode of arrival: ambulatory Limitations: no limitations History of Present Illness: 27-year-old female who states she did have abdominal pain is epigastric in nature over the last 10 days. She states been much worse tonight she states that seems to be worse with eating she had some nausea she rates her pain a 7 out of 10 radiates to her back no history of abdominal surgeries denies any fevers. Associated Symptoms: Reports nausea; Denies chills, dysuria and fever(s) Review of Systems Const: Denies: fever(s), chills, body aches or change in appetite Eyes: Denies: blurry vision or eye discomfort ENMT: Denies: throat pain or dental pain Card: Denies: chest pain Resp: Denies: dyspnea GI: Reports: abdominal pain and nausea : Denies: dysuria Musc: Denies: neck pain or back pain Skin/Breast: Denies: rash Neuro: Denies: headache(s) Psych: Denies: depression Jaime/Lymph: Denies: easy bruising All/Imm: Denies: urticaria PFSH ED PFSH: Medical History No pertinent past medical history Denies diabetes, asthma, hypertension, seizures, DVT/PE PCP: Dr. Cisneros Surgical History No history of previous surgery Family History Grandmother Diabetes paternal Family/Other Uterine cancer maternal great aunt, diagnosed in her 50s Denies family history of Colon cancer Ovarian cancer Heart disease Hyperlipidemia Breast cancer Hypertension Thyroid condition Stroke Physical Exam Const: COMMON NORMALS: no acute distress, patient oriented x3 and healthy appearing HENMT: COMMON NORMALS: normocephalic and atraumatic HEAD & SCALP: normocephalic and atraumatic Eye: COMMON NORMALS: Equal, round and reactive pupils present and EOMs intact bilaterally PUPIL: Yes Equal, round and reactive pupils present Neck/C-Spine: COMMON NORMALS: full ROM and supple Chest: COMMONS NORMALS: normal inspection of the chest and normal palpation of entire chest wall Resp: COMMON NORMALS: normal respiratory effort, No retractions, No use of accessory muscles and clear to auscultation bilaterally AUSCULTATION: clear to auscultation bilaterally Cardio: COMMON NORMALS: regular rate, regular rhythm and No murmurs present (Cardio) RATE: regular rate RHYTHM: regular rhythm GI: COMMON NORMALS: Normal to inspection, nondistended, normoactive bowel sounds present, Soft to palpation, non-tender and no masses PALPATION: Yes Soft to palpation Extremity: COMMON NORMALS: normal to inspection and full ROM Neuro: COMMON NORMALS: patient oriented x3, moves all extremities and no focal motor deficits Psych: COMMON NORMALS: mental status grossly normal, Normal thought process present and cooperative THOUGHT PROCESS: Normal thought process present Skin: COMMON NORMALS: no rashes or lesions noted and no wounds GENERAL SKIN EXAM: no rashes or lesions noted Course Vital Signs: Vital signs: Vital Signs Temperature 98.4 F 11/29/22 21:36 Pulse Rate 80 11/29/22 23:36 Respiratory Rate 16 11/29/22 23:36 Blood Pressure 189/123 11/29/22 23:36 Pulse Oximetry 100 11/29/22 23:36 Oxygen Delivery Me thod 11/29/22 22:56 MDM - Abdominal Pain Medical Decision Making Patient presents here with abdominal pain is likely gastritis pain was completely resolved here with a GI cocktail her blood work here is normal her abdominal exam is benign at discharge we will start her on sulcal fate along with Protonix get her follow-up with surgery she is return if worsening she understands agrees to plan. Lab Data 11/29/22 21:54 11/29/22 21:54 Labs/Radiology: Laboratory Results WBC 9.2 10^3/uL (4.0-10.0) 11/29/22 21:54 RBC 4.91 10^6/uL (4.1-5.3) 11/29/22 21:54 Hgb 14.2 g/dL (11.5-15.3) 11/29/22 21:54 Hct 42.3 % (37.0-47.0) 11/29/22 21:54 MCV 86.2 fl (81-99) 11/29/22 21:54 MCH 28.9 pg (28.0-34.0) 11/29/22 21:54 MCHC 33.6 g/dL (30.0-36.0) 11/29/22 21:54 RDW 12.1 % (12.1-15.1) 11/29/22 21:54 Plt Count 230 10^3/cmm (130-400) 11/29/22 21:54 MPV 10.1 fL (7.4-10.4) 11/29/22 21:54 Neut % (Auto) 77.5 % 11/29/22 21:54 Lymph % (Auto) 15.5 % 11/29/22 21:54 [place] % (Auto) 5.1 % 11/29/22 21:54 Eos % (Auto) 1.4 % 11/29/22 21:54 Baso % (Auto) 0.3 % 11/29/22 21:54 Neut # (Auto) 7.10 10^3/uL (1.8-7.7) 11/29/22 21:54 Lymph # (Auto) 1.4 10^3/uL (0.8-4.8) 11/29/22 21:54 [place] # (Auto) 0.5 10^3/uL (0.2-0.9) 11/29/22 21:54 Eos # (Auto) 0.1 10^3/uL (0.0-0.8) 11/29/22 21:54 Baso # (Auto) 0.0 10^3/uL (0.0-0.1) 11/29/22 21:54 Nucleated RBC % (auto) 0 % 11/29/22 21:54 Nucleated RBCs # 0.0 /100WBC 11/29/22 21:54 Sodium 134 mmol/L (136-145) L 11/29/22 21:54 Potassium 3.2 mmol/L (3.5-5.1) L 11/29/22 21:54 Chloride 99 mmol/L (98-107) 11/29/22 21:54 Carbon Dioxide 27 mmol/L (22-29) 11/29/22 21:54 Anion Gap 11.2 (5-19) 11/29/22 21:54 BUN 13 mg/dL (6-20) 11/29/22 21:54 Creatinine 0.9 mg/dL (0.5-0.9) 11/29/22 21:54 GFR Calculation 74.6 mL/min (90-130) L 11/29/22 21:54 Glucose 97 mg/dL (65-115) 11/29/22 21:54 Calculated Osmolality 278 mOsm/kg (285-295) L 11/29/22 21:54 Calcium 8.7 mg/dL (8.5-10.5) 11/29/22 21:54 Total Bilirubin 0.6 mg/dL (0.15-1.2) 11/29/22 21:54 AST 20 U/L (0-32) 11/29/22 21:54 ALT 12 U/L (0-33) 11/29/22 21:54 Alkaline Phosphatase 70 U/L (35-105) 11/29/22 21:54 Total Protein 6.9 g/dL (6.6-8.7) 11/29/22 21:54 Albumin 4.3 g/dL (3.5-5.2) 11/29/22 21:54 Globulin 2.6 g/dL (1.3-4.6) 11/29/22 21:54 Lipase 29 U/L (13-60) 11/29/22 21:54 HCG, Qual Negative (Negative) 11/29/22 21:54 Discharge Plan Discharge Patient Disposition: Home Clinical Impression: Abdominal pain Condition: Stable Prescriptions: New hydrocodone-acetaminophen 5-325 mg tablet 1 tab PO Q6H PRN (Reason: pain) Qty: 14 0RF Protonix 40 mg tablet,delayed release (DR/EC) 40 mg PO DAILY Qty: 60 0RF ondansetron 4 mg tablet,disintegrating 4 mg PO Q6H PRN (Reason: nausea and vomiting) Qty: 14 0RF sucralfate 1 gram tablet 1 g PO BID 28 Days Qty: 56 0RF No Action Nexplanon 68 mg implant subdermal Discharge Orders: Discharge ED (Routine); Ordered 11/29/22 Ordered By: Amol Bautista Referrals: Juan Pablo Kaba DO [Physician] - 1-3 days Socrates Cisneros MD [Primary Care Provider] - 1-3 days Discharge Diet: Advance as tolerated Discharge Activity: Resume usual activity Patient Instructions: Gastritis (ED), Abdominal Pain (ED) Coding Level of Care Code ED Fruit Thinner Machine Operator for Chg Sukhdev
[2022-11-29 21:59] LABS: Basophils % 0.3 %; Eosinophils # 0.1 10^3/uL (0.0-0.8); Eosinophils % 1.4 %; Hematocrit 42.3 % (37.0-47.0); Hemoglobin 14.2 g/dL (11.5-15.3); Lymphocytes # 1.4 10^3/uL (0.8-4.8); Lymphocytes % 15.5 %; Mean Corpuscular HGB Conc 33.6 g/dL (30.0-36.0); Mean Corpuscular Hemoglobin 28.9 pg (28.0-34.0); Mean Corpuscular Volume 86.2 fl (81-99); Mean Platelet Volume 10.1 fL (7.4-10.4); Monocytes # 0.5 10^3/uL (0.2-0.9); Monocytes % 5.1 %; Neutrophils % 77.5 %; Nucleated Red Blood Cells % 0 %; Platelet Count 230 10^3/cmm (130-400); Red Blood Count 4.91 10^6/uL (4.1-5.3); Red Cell Distribution Width 12.1 % (12.1-15.1); White Blood Count 9.2 10^3/uL (4.0-10.0)
[2022-11-29] MEDS: sodium chloride 0.9% 1,000 ML 999 ML IV (22:00)
[2022-11-29] MEDS: ondansetron 2 mg/ML SDV 2 mL 4 MG IVP (22:01)
[2022-11-29] MEDS: lidocaine 2% viscous 15 ML, aluminum-mag hydrox-simethicon 30 ML, sucralfate oral liq 1 GM PO (22:05)
[2022-11-29 22:25] LABS: Alanine Aminotransferase 12 U/L (0-33); Albumin Level 4.3 g/dL (3.5-5.2); Alkaline Phosphatase 70 U/L (35-105); Anion Gap 11.2 (5-19); Aspartate Amino Transferase 20 U/L (0-32); Blood Urea Nitrogen 13 mg/dL (6-20); Calcium 8.7 mg/dL (8.5-10.5); Carbon Dioxide 27 mmol/L (22-29); Chloride 99 mmol/L (98-107); Globulin 2.6 g/dL (1.3-4.6); Glomerular Filtration Rate 74.6 mL/min (90-130); Glucose 97 mg/dL (65-115); Lipase 29 U/L (13-60); Osmolality Calculated 278 mOsm/kg (285-295); Potassium 3.2 mmol/L (3.5-5.1); Sodium 134 mmol/L (136-145); Total Bilirubin 0.6 mg/dL (0.15-1.2); Total Protein 6.9 g/dL (6.6-8.7)
[2022-11-29 22:48] LABS: HCG, Serum Qual Negative (Negative)
[2022-11-29 22:56] VITALS: PULSE 78; RESP 16; O2SAT 99
[2022-11-29 23:27] LABS: Add Urine Microscopic? NO; Charge for UA Resulting for Rev
[2022-11-29 23:36] VITALS: BP 189/123; PULSE 80; RESP 16; O2SAT 100
[2022-11-29 23:45] LABS: Blood Urine Neg (Negative); Glucose Urine UA Norm (Normal); Ketones Urine Negative (Negative); Protein Urine Neg (Negative); Urine Appearance Clear (CLEAR); Urine Color Yellow (Yellow); pH Urine 7 (5-7)
[2022-11-29 23:46] LABS: Bilirubin Urine Neg (Negative); Leukocyte Esterase Urine Negative (Negative); Nitrate Urine Negative (Negative); Urobilinogen Urine Neg (Negative)
--- NOTE | 2022-12-01 11:30 | DCPLANNER ---
Addendum entered by Jaquelin Still 12/03/22 14:27: credit manager called [facility] to confirm that facility had received patients information. credit manager was told that facility did receive patients information. Addendum entered by Jaquelin Still 12/03/22 08:17: credit manager received the following message from the front office staff at general surgery: Unfortunately dr. Kaba is not in network with [facility] please refer patient elsewhere credit manager called patient and explained this to patient, caseworker asked patient where she would like to be referred to and patient stated that she would like to be referred to [facility]. credit manager faxed patients information to [facility]. Original Note: credit manager had message to schedule a follow up appointment for patient with general surgery. credit manager sent patients information to the front office staff at general surgery. Patients information will be printed and reviewed. Clinic will call patient with appointment information.
== END 2022-11-29 23:22 | disposition home or self-care (01) ==
PROVIDERS: Emergency Provider Emergency Medicine; PCP Family Medicine
DX: R10.13 Epigastric pain (principal)
CPT/HCPCS: 80053; 81003; 83690; 84703; 85025; 96361; 96374; 99284; J2405; J7030

== ENCOUNTER 2023-10-20 18:08 | Emergency (ER) | payer MEDICAID, SELFPAY ==
[2023-10-20 18:17] VITALS: BP 127/76; PULSE 78; RESP 16; TEMP 36.8; O2SAT 99; BMI 27.3
--- NOTE | 2023-10-20 21:19 | CTR_ITS ---
PROCEDURE INFORMATION: Exam: CT Head Without Contrast Exam date and time: 10/20/2023 9:58 PM Age: 28 years old Clinical indication: Pain; Headache; Additional info: New onset BEE x 3 days. No h/o BEE TECHNIQUE: Imaging protocol: Computed tomography of the head without contrast. Radiation optimization: All CT scans at this facility use at least one of these dose optimization techniques: automated exposure control; mA and/or kV adjustment per patient size (includes targeted exams where dose is matched to clinical indication); or iterative reconstruction. COMPARISON: CT cervical spin wo con* [id number] 08/23/2018 6:55 PM RADIATION DOSE METRICS: Total DLP (mGy-cm): 1122.98 FINDINGS: Brain: No focal hemorrhage or midline shift is identified. Cerebral ventricles: No ventriculomegaly or evidence of acute hydrocephalus. Paranasal sinuses: The partially assessed sinuses are grossly clear. Mastoid air cells: Visualized mastoid air cells are well aerated. Bones/joints: No displaced skull fracture is noted. Soft tissues: Unremarkable. CT/CT head wo con* [id number] IMPRESSION: No acute intracranial abnormality.
--- NOTE | 2023-10-20 21:29 | W.ED.HA ---
HPI - Headache General: Chief Complaint: Headache Stated Complaint: migraine Time Seen by Provider: 10/20/23 21:08 Source: patient Mode of arrival: ambulatory Limitations: no limitations History of Present Illness: 28yo female presents with family for evaluation of a headache that has been ongoing for the past 3 days. Patient states she does not typically have headaches. States that usually when she has a headache, her blood pressure is elevated. Patient reports that she did get her blood pressure down, but the headache has persisted. Patient reports that the pain is from the back of her neck up to the back of the head as well as to the front of her head and behind her left eye. She states that she has had vomiting with this headache yesterday, none today. Reports that she has not been able to drink as much fluid as she typically would. Patient states that she has tried ibuprofen with no improvement. Patient denies having a history of migraines or having any previous imaging for headaches. She denies any fever, recent illness, fall, trauma, known injury, any other concern at this time. Associated symptoms: Reports vomiting; Deny chest pain, confusion or fever(s) Review of Systems Const: Denies: fever(s) or chills Eyes: Denies: change in vision Card: Denies: chest pain Resp: Denies: dyspnea GI: Reports: vomiting; Denies: abdominal pain Musc: Denies: neck pain Neuro: Reports: headache(s); Denies: lack of coordination, difficulty walking, confusion or Slurred speech present [facility] PFSH: Medical History No pertinent past medical history Denies diabetes, asthma, hypertension, seizures, DVT/PE PCP: Dr. Cisneros Surgical History No history of previous surgery Family History Grandmother Diabetes paternal Family/Other Uterine cancer maternal great aunt, diagnosed in her 50s Denies family history of Colon cancer Ovarian cancer Heart disease Hyperlipidemia Breast cancer Hypertension Thyroid condition Stroke Physical Exam Const: COMMON NORMALS: no acute distress, patient oriented x3 and alert GENERAL APPEARANCE: cooperative and comfortable OTHER: Patient is sitting upright on stretcher in a darkened room in no acute distress. She is able to give history with no difficulty. She is interactive with exam appropriately. Family is at bedside HENMT: COMMON NORMALS: normocephalic, hearing grossly normal bilaterally, external ears normal, EAC's normal, TM's normal bilaterally and Normal external nose present HEAD & SCALP: normocephalic FACE & SINUS: normal facial exam NOSE: Normal external nose present EXTERNAL EAR: Yes external ears normal EXTERNAL AUDITORY CANAL: EAC's normal TYMPANIC MEMBRANE: TM's normal bilaterally Eye: COMMON NORMALS: Equal, round and reactive pupils present, EOMs intact bilaterally and conjunctivae normal GENERAL EYE: appearance normal, both eyes and all related structures PERIORBITAL: periorbital findings normal EYELID: eyelids normal CONJUNCTIVA: Yes conjunctivae normal PUPIL: Yes Equal, round and reactive pupils present Neck/C-Spine: COMMON NORMALS: full ROM Resp: COMMON NORMALS: normal respiratory effort and clear to auscultation bilaterally AUSCULTATION: clear to auscultation bilaterally Cardio: COMMON NORMALS: regular rate RATE: regular rate Back/Pelvis: COMMON NORMALS: thoraco-lumbar ROM normal Extremity: COMMON NORMALS: full ROM Neuro: COMMON NORMALS: patient oriented x3, CN's II-XII intact bilaterally, moves all extremities and gait normal SENSORIUM/ORIENTATION: Yes alert COORDINATION/BALANCE: [id number] test normal SPEECH: speech normal GAIT: Yes Normal gait present COORDINATION: [id number] test normal Psych: COMMON NORMALS: cooperative Course Reevaluation(s): Reevaluation #1: Discussed negative CT of the head with patient and family. Also discussed negative UA. Advised that we would treat the headache with the migraine cocktail. Patient does request the medications to be administered IV for rapid relief. Time: 22:25 Vital Signs: Vital signs: Vital Signs Temperature 98.2 F 10/20/23 18:17 Pulse Rate 76 10/20/23 23:00 Respiratory Rate 18 10/20/23 23:00 Blood Pressure 127/88 10/20/23 23:00 Pulse Oximetry 97 10/20/23 23:00 Oxygen Delivery Me thod Room Air 10/20/23 23:00 MDM - Headache Medical Decision Making 28yo female here with family for headache that has been ongoing for the past 3 days. Patient states she does not typically have headaches, and when she does it is usually because her blood pressure is elevated. Patient states that her blood pressure is under control, but she is still having a headache. States that she has had ibuprofen with no improvement. Patient reports she did have vomiting yesterday with her headache, none today. She denies having any previous imaging for headache or any diagnoses of headaches. Patient denies fever, recent illness, fall, trauma, known injury, vision changes, any other concern at this time. Patient is nontoxic in appearance. Vital signs are stable. Given that the patient does not have a history of headaches and has had a persistent 1 for the past 3 days, we will proceed with CT imaging. UPT is negative. UA is grossly unremarkable. CT of the head with no acute abnormalities noted. Proceeded with 500 mL normal saline bolus, ketorolac, diphenhydramine, and metoclopramide for headache cocktail. Patient reported improvement in her headache after medication administration and wished to go home so she could go to sleep. Advised patient to increase her fluid intake and continue to monitor her symptoms. Recommend she follow-up with primary care, call in a few days with an update of symptoms and to discuss a recheck. Advised to return to the emergency department if any rapid worsening symptoms, onset of fever associated with worsening, and as needed. Patient states understanding and has no further questions or concerns at this time Differential Diagnosis Likely migraine, tension headache and headache Medical Records I reviewed the patient's medical records. Lab Data I reviewed the patient's lab results. Radiology Impressions Head CT 10/20/23 21:19 IMPRESSION: No acute intracranial abnormality. Laboratory Results HCG, Qual Negative (Negative) 10/20/23: Urine Color Yellow (Yellow) 10/20/23: Urine Appearance Hazy (CLEAR) A 10/20/23 21: Urine pH 5 (5-7) 10/20/23: Ur Specific [place] 1.020 (1.005-1.030) 10/20/23 21: Urine Protein Neg (Negative) 10/20/23 21: Urine Glucose (UA) Norm (Normal) 10/20/23 21: Urine Ketones Negative (Negative) 10/20/23 21: Urine Blood Trace (Negative) H 10/20/23 21: Urine Nitrate Negative (Negative) 10/20/23 21: Urine Bilirubin Neg (Negative) 01/09/24 21:27 Urine Urobilinogen Neg mg/dL (Negative) 10/20/23 21:27 Ur Leukocyte Esterase Trace (Negative) H 10/20/23 21:27 Urine RBC 0-4 /hpf (0-2) H 10/20/23 21:27 Urine WBC 5-10 /hpf (0-5) H 10/20/23 21:27 Ur Squamous Epith Cells 10-15 /hpf (0-5) H 10/20/23 21:27 Amorphous Sediment Not Reportable 10/20/23 21:27 Urine Bacteria 2+ /hpf (NONE) H 10/20/23 21:27 All radiology interpretation(s) finalized by discharge Discharge Plan Discharge Patient Disposition: Home Clinical Impression: Headache Qualifiers: Headache type: unspecified Headache chronicity pattern: acute headache Intractability: not intractable Qualified Code(s): R51.9 - Headache, unspecified Condition: Stable Prescriptions: No Action Nexplanon 68 mg implant subdermal hydrocodone-acetaminophen 5-325 mg tablet 1 tab PO Q6H PRN (Reason: pain) Qty: 14 0RF Protonix 40 mg tablet,delayed release (DR/EC) 40 mg PO DAILY Qty: 60 0RF ondansetron 4 mg tablet,disintegrating 4 mg PO Q6H PRN (Reason: nausea and vomiting) Qty: 14 0RF Discharge Orders: Discharge ED (Routine); Ordered 10/20/23 Ordered By: Constantine Villalobos Referrals: Socrates Cisneros MD [Primary Care Provider] - Discharge Diet: Usual diet Discharge Activity: Increase activity as tolerated Patient Instructions: Acute Headache (ED) Activity Restrictions/Additional Instructions: Increase your fluid intake and continue to monitor your symptoms Follow-up with primary care, call later this week with an update of symptoms and to discuss a recheck Return to the emergency department if any rapid worsening symptoms, onset of fever associated with worsening, and as needed Stand Alone Forms: Work/School Release Coding 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
[2023-10-20 21:37] LABS: HCG Qualitative Urine. Negative (Negative)
[2023-10-20 21:45] LABS: Glucose Urine UA Norm (Normal); Ketones Urine Negative (Negative); Protein Urine Neg (Negative); Urine Appearance Hazy (CLEAR); Urine Color Yellow (Yellow); pH Urine 5 (5-7)
[2023-10-20 21:46] LABS: Add Urine Culture? No; Add Urine Microscopic? YES; Bacteria Urine 2+ /hpf; Bilirubin Urine Neg (Negative); Blood Urine Trace (Negative); Leukocyte Esterase Urine Trace (Negative); Nitrate Urine Negative (Negative); RBC Urine 0-4 /hpf (0-2); Urobilinogen Urine Neg (Negative)
[2023-10-20 22:17] VITALS: BP 135/90; RESP 15
[2023-10-20] MEDS: diphenhydrAMINE 50 mg/mL SDV 1mL 25 MG IVP (22:48)
[2023-10-20] MEDS: metoclopramide 5 mg/mL SDV 2 mL 10 MG IV (22:49)
[2023-10-20] MEDS: ketorolac 30 mg/mL INJ 15 MG IVP (22:49)
[2023-10-20 23:00] VITALS: BP 127/88; PULSE 76; RESP 18; O2SAT 97
== END 2023-10-20 23:10 | disposition home or self-care (01) ==
PROVIDERS: Emergency Provider Nurse Practitioner; PCP Family Medicine
DX: R51.9 Headache, unspecified (principal)
CPT/HCPCS: 70450; 81001; 81025; 96374; 96375; 99285; J1200; J1885; J2765

== ENCOUNTER 2024-02-03 08:56 | Emergency (ER) | payer MEDICAID, SELFPAY ==
[2024-02-03 09:07] VITALS: BP 146/97; PULSE 80; RESP 17; TEMP 36.7; O2SAT 98; BMI 27.1
[2024-02-03 09:55] VITALS: BP 166/122; PULSE 80; O2SAT 100
[2024-02-03 10:11] LABS: Basophils % 0.2 %; Eosinophils # 0.1 10^3/uL (0.0-0.8); Hematocrit 40.9 % (36-47); Lymphocytes # 1.4 10^3/uL (0.8-4.8); Lymphocytes % 27.1 %; Mean Corpuscular HGB Conc 33.5 g/dL (30-55); Mean Corpuscular Hemoglobin 29.8 pg (27-33); Mean Corpuscular Volume 88.9 fl (85-98); Monocytes # 0.4 10^3/uL (0.2-0.9); Monocytes % 7.6 %; Neutrophils % 63.9 %; Nucleated Red Blood Cells % 0 %; Platelet Count 210 10^3/cmm (157-399); Red Cell Distribution Width 12.8 % (12.1-15.1); White Blood Count 5.16 10^3/uL (3.29-11.43)
[2024-02-03 10:30] VITALS: BP 148/94; PULSE 82; O2SAT 99
[2024-02-03 10:37] LABS: Alanine Aminotransferase 21 U/L (0-33); Albumin Level 4.2 g/dL (3.5-5.2); Alkaline Phosphatase 56 U/L (35-105); Anion Gap 12.6 (5-19); Aspartate Amino Transferase 19 U/L (0-32); Blood Urea Nitrogen 11 mg/dL (6-20); Calcium 9.3 mg/dL (8.5-10.5); Carbon Dioxide 27 mmol/L (22-29); Chloride 104 mmol/L (98-107); Creatinine Clr Calc Pharmacy 111.9561; Globulin 3.4 g/dL (1.3-4.6); Glomerular Filtration Rate 84.8 mL/min (90-130); Glucose 96 mg/dL (65-115); Osmolality Calculated 289 mOsm/kg (285-295); Potassium 3.6 mmol/L (3.5-5.1); Sodium 140 mmol/L (136-145); Total Bilirubin 0.6 mg/dL (0.15-1.2); Total Protein 7.6 g/dL (6.6-8.7)
--- NOTE | 2024-02-03 10:40 | ED_ITS ---
HPI - 2 General: Chief complaint: Vaginal Bleeding Stated complaint: vaginal bleeding , is 7 weeks preg Time Seen by Provider: 02/03/24 09:06 Source: patient Mode of arrival: ambulatory History of Present Illness: 28-year-old female presents emergency ro om complaining of vaginal bleeding. By her last known menstrual period she placed herself at approximately 7 weeks yet station. She has had scant amount of bleeding intermittently. She states it was just enough to become concerned. She denies any dysuria urgency or frequency. Patient does have a history of hypertension. She has not yet established primary care physician and has not yet confirmed intrauterine . Mild cramping MD Complaint: vaginal bleeding Location: pelvis Severity: mild Quality: Cramping Relieving factors: none Exacerbating factors: none Associated symptoms: Reports vaginal bleeding; Deny abdominal pain, dysuria, headache(s), malaise, nausea, rash, seizures, short of breath, syncope, vaginal discharge, visual changes, vomiting or weakness Related Data: : 4 Review of Systems 2 Const: Denies: fever(s), chills, fatigue or malaise Card: Denies: syncope Resp: Denies: dyspnea GI: Denies: abdominal pain, nausea or vomiting : Reports: vaginal bleeding; Denies: dysuria, urinary frequency, urinary urgency or vaginal discharge Musc: Denies: neck pain or back pain Skin/Breast: Denies: rash Neuro: Denies: headache(s) PFSH ED 2 PFSH: Medical History Hypertension Diagnosed with gestational hypertension in her 2020 which remained after delivery; she has not been compliant with consistent medication therapy Trichomonal cervicitis No pertinent past medical history Denies diabetes, asthma, hypertension, seizures, DVT/PE PCP: Dr. Cisneros Surgical History No history of previous surgery Family History Grandmother Diabetes paternal Family/Other Uterine cancer maternal great aunt, diagnosed in her 50s Denies family history of Colon cancer Ovarian cancer Heart disease Hyperlipidemia Breast cancer Hypertension Thyroid disease Stroke Female Reproductive History: : 4 Physical Exam 2 Const: COMMON NORMALS: no acute distress GENERAL APPEARANCE: cooperative and comfortable ORIENTATION/CONSCIOUSNESS: Yes awake, Yes oriented to person, Yes oriented to place and Yes oriented to time HENMT: COMMON NORMALS: normocephalic, atraumatic and hearing grossly normal bilaterally HEAD & SCALP: normocephalic and atraumatic Resp: COMMON NORMALS: normal respiratory effort, No retractions, No use of accessory muscles and clear to auscultation bilaterally AUSCULTATION: clear to auscultation bilaterally Cardio: COMMON NORMALS: regular rate, regular rhythm and No murmurs present (Cardio) RATE: regular rate RHYTHM: regular rhythm GI: COMMON NORMALS: Soft to palpation and No hepatosplenomegaly present A USCULTATION: Yes normoactive bowel sounds PALPATION: Yes Soft to palpation, No Tenderness to palpation present (GI), No Guarding due to palpation present (GI) and Yes No hepatosplenomegaly present : SPECULUM EXAM - VAGINA: Yes vaginal bleeding OB/EXTERNAL & SPECULUM: v aginal bleeding Extremity: COMMON NORMALS: normal to inspection, capillary refill normal, no clubbing, cyanosis or edema, no calf tenderness and no pedal edema Neuro: SENSORIUM/ORIENTATION: Yes oriented to person, Yes oriented to place and Yes oriented to time Skin: COMMON NORMALS: no rashes or lesions noted GENERAL SKIN EXAM: no rashes or lesions noted Course 2 Vital Signs: Vital signs: Vital Signs Temperature 98.1 F 02/03/24 09:07 Pulse Rate 72 02/03/24 13:10 Respiratory Rate 17 02/03/24 09:07 Blood Pressure 166/120 02/03/24 13:10 Pulse Oximetry 99 02/03/24 13:10 Oxygen Delivery Me thod Room Air 02/03/24 09:07 MDM - OB/Uterine Contractions Medical Decision Making Ultrasound confirms what appears to be products of conception within the uterus however they are not consistent with a 7-week gestation beta-hCG is exceptionally low for an expected 7-week gestation. Discussed with the patient 1 possibility is her dates are off and she is much earlier than she anticipates. The other possibility is that she is in the process of miscarrying. Difficult to assess completely wedge. She is not having active bleeding at this time. Encouraged her to follow-up with her doctor in the next 3 to 4 days for repeat beta-hCG if climbing that with obviously the a good sign if decreasing would indicate that she has miscarried. Patient expresses understanding. Medical Records I reviewed the patient's medical records. Lab Data I reviewed the patient's lab results. 02/03/24 09:37 02/03/24 09:37 Laboratory Results WBC 5.16 10^3/uL (3.29-11.43) 02/03/24 09:37 RBC 4.60 10^6/uL (3.85-5.65) 02/03/24 09:37 Hgb 13.70 g/dL (11.27-16.99) 02/03/24 09:37 Hct 40.9 % (36-47) 02/03/24 09:37 MCV 88.9 fl (85-98) 02/03/24 09:37 MCH 29.8 pg (27-33) 02/03/24 09:37 MCHC 33.5 g/dL (30-55) 02/03/24 09:37 RDW 12.8 % (12.1-15.1) 02/03/24 09:37 Plt Count 210 10^3/cmm (157-399) 02/03/24 09:37 MPV 10.0 fL (7.4-10.4) 02/03/24 09:37 Neut % (Auto) 63.9 % 02/03/24 09:37 Lymph % (Auto) 27.1 % 02/03/24 09:37 [place] % (Auto) 7.6 % 02/03/24 09:37 Eos % (Auto) 1.0 % 02/03/24 09:37 Baso % (Auto) 0.2 % 02/03/24 09:37 Neut # (Auto) 3.30 10^3/uL (1.8-7.7) 02/03/24 09:37 Lymph # (Auto) 1.4 10^3/uL (0.8-4.8) 02/03/24 09:37 [place] # (Auto) 0.4 10^3/uL (0.2-0.9) 02/03/24 09:37 Eos # (Auto) 0.1 10^3/uL (0.0-0.8) 02/03/24 09:37 Baso # (Auto) 0.0 10^3/uL (0.0-0.1) 02/03/24 09:37 Nucleated RBC % (auto) 0 % 02/03/24 09:37 Nucleated RBCs # 0.0 /100WBC 02/03/24 09:37 Sodium 140 mmol/L (136-145) 02/03/24 09:37 Potassium 3.6 mmol/L (3.5-5.1) 02/03/24 09:37 Chloride 104 mmol/L (98-107) 02/03/24 09:37 Carbon Dioxide 27 mmol/L (22-29) 02/03/24 09:37 Anion Gap 12.6 (5-19) 02/03/24 09:37 BUN 11 mg/dL (6-20) 02/03/24 09:37 Creatinine 0.8 mg/dL (0.5-0.9) 02/03/24 09:37 GFR Calculation 84.8 mL/min (90-130) L 02/03/24 09:37 Glucose 96 mg/dL (65-115) 02/03/24 09:37 Calculated Osmolality 289 mOsm/kg (285-295) 02/03/24 09:37 Calcium 9.3 mg/dL (8.5-10.5) 02/03/24 09:37 Total Bilirubin 0.6 mg/dL (0.15-1.2) 02/03/24 09:37 AST 19 U/L (0-32) 02/03/24 09:37 ALT 21 U/L (0-33) 02/03/24 09:37 Alkaline Phosphatase 56 U/L (35-105) 02/03/24 09:37 Total Protein 7.6 g/dL (6.6-8.7) 02/03/24 09:37 Albumin 4.2 g/dL (3.5-5.2) 02/03/24 09:37 Globulin 3.4 g/dL (1.3-4.6) 02/03/24 09:37 Ser , Semi-Qnt 1767.00 mIU/mL 02/03/24 09:37 Blood Type O Positive 02/03/24 09:37 Rho(D) Type Rh positive 02/03/24 09:37 All radiology interpretation(s) finalized by discharge Discharge Plan Discharge Patient Disposition: Home Clinical Impression: First trimester bleeding Condition: Stable Prescriptions: No Action clonidine 0.2 mg/24 hr patch weekly topical labetalol 100 mg tablet 100 mg PO QID PRN Discharge Orders: Discharge ED (Routine); Ordered 02/03/24 Ordered By: Kam Ardon Referrals: Socrates Cisneros MD [Primary Care Provider] - Discharge Diet: Usual diet Discharge Activity: Resume usual activity Patient Instructions: Opioid Safety, Pain Management Activity Restrictions/Additional Instructions: Thank you for choosing [facility] for your healthcare needs today. Please realize this is an emergency room and that we are providing you with a medical screening exam and this may not be complete and all inclusive of all the testing and or work up that you may need to determine your ailment or severity of your illness. It is very important that you follow up as instructed or that you return to the Emergency Department should you have concerns or if your condition changes or worsens in any way. You were seen today for vaginal bleeding in the first trimester . Your beta hCG was lower than expected. Ultrasound did show very early signs of an intrauterine but it was difficult to confirm that the was viable. This will need to be rechecked. You can discuss with the Dr. Medellin at your office visit in 2 days. Coding Level of Care Code ED Learning Disabilities Resource Teacher for Vane Santizo
--- NOTE | 2024-02-03 10:40 | US_ITS ---
WS: [id number] EARLY OBSTETRICAL ULTRASOUND (<14 WEEKS). HISTORY: viability, vaginal bleeding at 7 weeks abnormally low COMPARISON: None available. Transvaginal evaluation of the uterus is performed. Thickened endometrium. Positioned low within the endometrium is a complex fluid collection measuring 0.5 x 0.5 x 0.5 cm. This corresponds to a gestati on of 5 weeks and 2 days. There is mild crenulation of the wall. No yolk sac or crown-rump length is identified at this time. Cervix is closed. There is a small amount of fluid in the cul-de-sac. Ovaries are normal. No adnexal mass. IMPRESSION: 1. Cannot confirm intrauterine gestation. 2. There is a small irregular fluid collection positioned low within the endometrium. Measurement co nsistent with a gestation of 5 weeks and 2 days. No pole or cardiac activity identified. This m ay be a very early intrauterine gestation but due to the position and appearance of the gestational s ac this is probably a blighted ovum or incomplete spontaneous . Follow-up transvaginal pelvic ultrasound may be necessary to confirm the diagnosis.
[2024-02-03 13:10] VITALS: BP 166/120; PULSE 72; O2SAT 99
== END 2024-02-03 13:12 | disposition home or self-care (01) ==
PROVIDERS: Emergency Provider Family Medicine; PCP Family Medicine
DX: O20.9 Hemorrhage in early pregnancy, unspecified (principal); O16.1 Unspecified maternal hypertension, first trimester; Z3A.01 Less than 8 weeks gestation of pregnancy
CPT/HCPCS: 36415; 76801; 80053; 84702; 85025; 86900; 99284

== ENCOUNTER 2024-02-05 14:30 | Outpatient (CLI) | payer MEDICAID, SELFPAY | END 2024-02-05 14:31 | disposition home or self-care (01) | LOC: LAB 14:30 | PROVIDERS: PCP Family Medicine; Visit Provider Nurse Practitioner Women's Health | DX: O20.0 Threatened abortion (principal); N92.6 Irregular menstruation, unspecified | CPT/HCPCS: 81025; 84702; 87491; 87591 ==

== ENCOUNTER → 2024-02-08 14:43 | Outpatient (BNVA) | payer MEDICAID, SELFPAY | PROVIDERS: PCP Family Medicine; Visit Provider Nurse Practitioner Women's Health | DX: O20.0 Threatened abortion (principal) | CPT/HCPCS: 84702 ==

== ENCOUNTER 2024-02-11 17:29 | Emergency (ER) | payer MEDICAID, SELFPAY ==
--- NOTE | 2024-02-11 17:31 | USR_ITS ---
PROCEDURE INFORMATION: Exam: US Duplex Artery or Vein of the Abdominal and/or Reproductive Organs, Limited Ovaries Exam date and time: 02/11/2024 5:39 PM Clinical indication: complicated by abdominal or pelvic pain; Other: Pelvic cramping and bleeding; Gestational age or lmp: 12/19/2023; ; Additional info: Threatened miscarriage TECHNIQUE: Imaging protocol: Real-time duplex ultrasound scan of the arterial or venous flow with cash scale, color Doppler flow and spectral waveform analysis with image documentation. Limited duplex exam focused on the ovaries. Duplex exam was performed to evaluate for torsion and other vascular conditions. COMPARISON: No relevant prior studies available. FINDINGS: Right ovary/adnexa: The right ovary is not visible. Left ovary/adnexa: Normal duplex of the ovary. Normal Doppler waveforms and color flow. No evidence of ovarian torsion. PROCEDURE INFORMATION: Exam: US First Trimester, Transabdominal and US , Transvaginal Exam date and time: 02/11/2024 5:39 PM Age: 28 years old Clinical indication: complicated by abdominal or pelvic pain; Other: Pelvic cramping and bleeding; Gestational age or lmp: 12/19/2023; ; Additional info: Threatened miscarriage TECHNIQUE: Imaging protocol: Real-time transabdominal obstetrical ultrasound of the maternal pelvis and a first trimester , less than 14 weeks 0 days, with image documentation. Transvaginal imaging was used for better evaluation of the fetus, adnexa, and/or cervix. COMPARISON: US OB <= 14 weeks fetus [id number] 02/03/2024 11:01 AM FINDINGS: GESTATION: Gestation: There is no intrauterine gestational sac. Embryonic/ heart rate: Not applicable Extra-embryonic membranes/Placenta: Not applicable Amniotic/Chorionic fluid: Not applicable BIOMETRY: Gestational age (AUA): Not applicable MATERNAL: Uterus: The uterus is retroflexed. Uterine contours are otherwise normal. The endometrium is homogenous. Endometrial stripe thickness measures 8 mm. There is no fluid in the endometrial canal. There is no intrauterine gestational sac. A suspected 8 mm gestational sac seen on 02/03/2024 is no longer present. Cervix: There are small nabothian cysts in the cervix. Right ovary/adnexa: The right ovary is not visible. Left ovary/adnexa: There is normal blood flow in the left ovary. The left ovary is morphologically normal. The left ovary measures 2.4 x 2.2 x 1.4 cm for a volume of 4 cc. Intraperitoneal space: There is trace free fluid in the cul-de-sac. US/US OB <=14 wk fetus w transvag IMPRESSION: Normal duplex of the left ovary. The right ovary is not visible. IMPRESSION: No intrauterine gestational sac. An intrauterine gestational sac suspected on 02/03/2024 is no longer present. No visible ectopic . Findings are consistent with spontaneous . Ectopic cannot be unequivocally excluded. Recommend continued follow-up beta hCG and repeat ultrasound if necessary for confirmation.
[2024-02-11 17:38] VITALS: BP 147/94; PULSE 76; TEMP 36.7; O2SAT 100; BMI 27.3
--- NOTE | 2024-02-11 19:24 | ED_ITS ---
HPI - Female Genitourinary 2 General: Chief complaint: Vaginal Bleeding Stated complaint: possible miscarriage Time Seen by Provider: 02/11/24 19:12 History of Present Illness: Patient presents to the ER today with complaints of increased vaginal bleeding passing clots and tissue about an hour ago. Patient is with no previous miscarriages or issues. Patient has been having vaginal bleeding over the past few days but just got worse. Patient says she is about 5 to 6 weeks . Patient has been having quantitative hCGs that she is following. Last 1 was approximately 3800. Review of Systems 2 General: Reports: 10 or more systems reviewed and unremarkable except in HPI and below PFSH ED 2 PFSH: Medical History Hypertension Diagnosed with gestational hypertension in her 2020 which remained after delivery; she has not been compliant with consistent medication therapy Trichomonal cervicitis No pertinent past medical history Denies diabetes, asthma, hypertension, seizures, DVT/PE PCP: Dr. Cisneros Surgical History No history of previous surgery Family History Grandmother Diabetes paternal Family/Other Uterine cancer maternal great aunt, diagnosed in her 50s Denies family history of Colon cancer Ovarian cancer Heart disease Hyperlipidemia Breast cancer Hypertension Thyroid disease Stroke Physical Exam 2 Const: COMMON NORMALS: no acute distress, average body habitus, no limitations, healthy appearing, alert and well nourished Neck/C-Spine: COMMON NORMALS: no JVD Chest: COMMONS NORMALS: normal inspection of the chest and normal palpation of entire chest wall Resp: COMMON NORMALS: normal respiratory effort, No retractions, No use of accessory muscles and clear to auscultation bilaterally AUSCULTATION: clear to auscultation bilaterally Cardio: COMMON NORMALS: no JVD, regular rate, regular rhythm, S1 normal heart sound present, S2 normal heart sound present, No gallops present (Cardio), No clicks present (Cardio), No murmurs present (Cardio) and No rub (Cardio) R ATE: regular rate RHYTHM: regular rhythm HEART SOUNDS: S1 normal heart sound present and S2 normal heart sound present GI: COMMON NORMALS: Normal to inspection, nondistended, normoactive bowel sounds present, Soft to palpation, non-tender, No hepatosplenomegaly present and no masses PALPATION: Yes Soft to palpation and Yes No hepatosplenomegaly present Neuro: SENSORIUM/ORIENTATION: Yes alert Course 2 Vital Signs: Vital signs: Vital Signs Temperature 98.0 F 02/11/24 17:38 Pulse Rate 76 02/11/24 17:38 Blood Pressure 147/94 02/11/24 17:38 Pulse Oximetry 100 02/11/24 17:38 Oxygen Delivery Me thod Room Air 02/11/24 17:38 MDM - Female Medical Decision Making Patient had lab work that included a quantitative hCG that was approximately 750, this is down from approximately 3500, ultrasound showed no gestational sac but no obvious visible ectopic either. These results was discussed with the patient patient will follow-up with her DIRECTOR [employer]. Lab Data 02/11/24 19:30 Radiology Impressions Obstetrics Ultrasound 02/11/24 17:31 IMPRESSION: Normal duplex of the left ovary. The right ovary is not visible. IMPRESSION: No intrauterine gestational sac. An intrauterine gestational sac suspected on 02/03/2024 is no longer present. No visible ectopic . Findings are consistent with spontaneous . Ectopic cannot be unequivocally excluded. Recommend continued follow-up beta hCG and repeat ultrasound if necessary for confirmation. Laboratory Results WBC 9.93 10^3/uL (3.29-11.43) 02/11/24 19:30 RBC 4.76 10^6/uL (3.85-5.65) 02/11/24 19:30 Hgb 14.00 g/dL (11.27-16.99) 02/11/24 19:30 Hct 42.6 % (36-47) 02/11/24 19:30 MCV 89.5 fl (85-98) 02/11/24 19:30 MCH 29.4 pg (27-33) 02/11/24 19:30 MCHC 32.9 g/dL (30-55) 02/11/24 19:30 RDW 12.6 % (12.1-15.1) 02/11/24 19:30 Plt Count 211 10^3/cmm (157-399) 02/11/24 19:30 MPV 10.6 fL (7.4-10.4) H 02/11/24 19:30 Neut % (Auto) 70.0 % 02/11/24 19:30 Lymph % (Auto) 22.4 % 02/11/24 19:30 Elbert % (Auto) 6.0 % 02/11/24 19:30 Eos % (Auto) 1.1 % 02/11/24 19:30 Baso % (Auto) 0.3 % 02/11/24 19:30 Neut # (Auto) 6.95 10^3/uL (1.8-7.7) 02/11/24 19:30 Lymph # (Auto) 2.2 10^3/uL (0.8-4.8) 02/11/24 19:30 Elbert # (Auto) 0.6 10^3/uL (0.2-0.9) 02/11/24 19:30 Eos # (Auto) 0.1 10^3/uL (0.0-0.8) 02/11/24 19:30 Baso # (Auto) 0.0 10^3/uL (0.0-0.1) 02/11/24 19:30 Nucleated RBC % (auto) 0 % 02/11/24 19: Nucleated RBCs # 0.0 /100WBC 02/11/24 19:30 Ser , Semi-Qnt 748.80 mIU/mL 02/11/24 19:30 All radiology interpretation(s) finalized by discharge Discharge Plan Discharge Patient Disposition: Home Clinical Impression: Spontaneous miscarriage Condition: Stable Prescriptions: No Action clonidine 0.2 mg/24 hr patch weekly topical labetalol 100 mg tablet 100 mg PO QID PRN Discharge Orders: Discharge ED (Routine); Ordered 02/11/24 Ordered By: Vicente Paniagua Referrals: Socrates Cisneros MD [Primary Care Provider] - 1 week Patient Instructions: Miscarriage (ED) Activity Restrictions/Additional Instructions: Your evaluation in ER included lab work and ultrasound. Your quantitative beta- hCG was down from approximately 3800 to approximately 750. Your ultrasound did not show any gestational sac. Both of these along with passing blood, clots, tissue is indicative of a spontaneous miscarriage. Please follow-up with your OB within the next 7 days for further evaluation and treatment. They may want to repeat your ultrasound and your blood work during this time. Coding Level of Care Code ED Internet Developer for Vane Santizo
[2024-02-11 19:43] LABS: Basophils % 0.3 %; Eosinophils # 0.1 10^3/uL (0.0-0.8); Eosinophils % 1.1 %; Hematocrit 42.6 % (36-47); Lymphocytes # 2.2 10^3/uL (0.8-4.8); Lymphocytes % 22.4 %; Mean Corpuscular HGB Conc 32.9 g/dL (30-55); Mean Corpuscular Hemoglobin 29.4 pg (27-33); Mean Corpuscular Volume 89.5 fl (85-98); Mean Platelet Volume 10.6 fL (7.4-10.4); Monocytes # 0.6 10^3/uL (0.2-0.9); Neutrophils # 6.95 10^3/uL (1.8-7.7); Nucleated Red Blood Cells % 0 %; Platelet Count 211 10^3/cmm (157-399); Red Blood Count 4.76 10^6/uL (3.85-5.65); Red Cell Distribution Width 12.6 % (12.1-15.1); White Blood Count 9.93 10^3/uL (3.29-11.43)
[2024-02-11 20:51] VITALS: BP 147/94; PULSE 76; TEMP 36.7; O2SAT 100
== END 2024-02-11 20:31 | disposition home or self-care (01) ==
PROVIDERS: Emergency Medicine; Emergency Provider Emergency Medicine; PCP Family Medicine
DX: O03.9 Complete or unspecified spontaneous abortion without complication (principal); O16.1 Unspecified maternal hypertension, first trimester; Z3A.01 Less than 8 weeks gestation of pregnancy
CPT/HCPCS: 36415; 76801; 76817; 84702; 85025; 99284

== ENCOUNTER → 2024-02-18 10:23 | Outpatient (BNVA) | payer MEDICAID, SELFPAY | PROVIDERS: PCP Family Medicine; Visit Provider Nurse Practitioner Women's Health | DX: O03.9 Complete or unspecified spontaneous abortion without complication (principal) | CPT/HCPCS: 76830; 84702 ==

== ENCOUNTER → 2024-02-23 11:23 | Outpatient (BNVA) | payer MEDICAID, SELFPAY | PROVIDERS: PCP Family Medicine; Visit Provider Nurse Practitioner Women's Health | DX: O03.4 Incomplete spontaneous abortion without complication (principal) | CPT/HCPCS: 84702 ==

== ENCOUNTER → 2024-03-03 09:00 | Outpatient (BNVA) | payer MEDICAID, SELFPAY | PROVIDERS: PCP Family Medicine; Visit Provider Nurse Practitioner Women's Health | DX: O03.4 Incomplete spontaneous abortion without complication (principal) | CPT/HCPCS: 84702 ==

== ENCOUNTER → 2024-06-01 13:28 | Outpatient (BNVA) | payer MEDICAID, SELFPAY | PROVIDERS: PCP Family Medicine; Visit Provider Nurse Practitioner Women's Health | DX: Z78.9 Other specified health status (principal); N92.6 Irregular menstruation, unspecified | CPT/HCPCS: 81025; 84702 ==

== ENCOUNTER → 2024-06-06 10:33 | Outpatient (BNVA) | payer MEDICAID, SELFPAY | PROVIDERS: PCP Family Medicine; Visit Provider Nurse Practitioner Women's Health | DX: Z36.87 Encounter for antenatal screening for uncertain dates (principal); Z3A.08 8 weeks gestation of pregnancy | CPT/HCPCS: 76801 ==

== ENCOUNTER → 2024-06-22 08:22 | Outpatient (BNVA) | payer MEDICAID, SELFPAY | PROVIDERS: PCP Family Medicine; Visit Provider Nurse Practitioner Women's Health | DX: Z34.90 Encounter for supervision of normal pregnancy, unspecified, unspecified trimester (principal); I10 Essential (primary) hypertension | CPT/HCPCS: 80053; 80307; 84315; 85025; 86592; 86762; 86803; 86850; 86900; 87086; 87340; 87806 ==

== ENCOUNTER → 2024-07-05 12:56 | Outpatient (BNVA) | payer MEDICAID, SELFPAY | PROVIDERS: PCP Family Medicine; Visit Provider Obstetrics & Gynecology | DX: Z01.419 Encounter for gynecological examination (general) (routine) without abnormal findings (principal); O09.899 Supervision of other high risk pregnancies, unspecified trimester; R82.90 Unspecified abnormal findings in urine | CPT/HCPCS: 84315; 84443; 87086; 87624 ==

== ENCOUNTER → 2024-07-08 14:47 | Outpatient (BNVA) | payer MEDICAID, SELFPAY | PROVIDERS: PCP Family Medicine; Visit Provider Obstetrics & Gynecology | DX: O09.899 Supervision of other high risk pregnancies, unspecified trimester (principal) | CPT/HCPCS: 84439; 84481 ==

== ENCOUNTER 2024-07-22 11:54 | Emergency (ER) | payer MEDICAID, SELFPAY ==
[2024-07-22 12:50] VITALS: BP 122/58; PULSE 90; RESP 16; TEMP 36.8; O2SAT 98; BMI 26.2
--- NOTE | 2024-07-22 13:05 | ED_ITS ---
HPI - Animal Bite General: Chief Complaint: Animal Bite Stated Complaint: animal bite (15wks preg) Time Seen by Provider: 07/22/24 13:05 Source: patient Mode of arrival: ambulatory Limitations: no limitations History of Present Illness: Patient is a 29-year-old female presents to ED today at the request of her OB provider for rabies PEP. Patient states she was at her brother's house yesterday in [place] when a stray dog came up to her. She states the dog initially jumped on her but did not appear overly aggressive. She states the dog then bit her to the left hand. She states she has no information regarding the dog. Unknown immunizations. Dog cannot be located or quarantined. Patient's last tetanus is unknown. MD complaint: animal bite Onset (ago): day(s) (yesterday) Animal: dog Description of animal: unknown animal and immunizations unknown Mechanism: bite Location - Extremities: Left: hand Context: unprovoked Associated symptoms: Reports no associated symptoms; Deny fever(s) Related Data Home Medications Medication Instructions Recorded Confirmed acetaminophen 325 mg tablet 325 mg PO QID PRN 07/05/24 07/19/24 (Tylenol) diphenhydramine HCl 25 mg tablet 25 mg PO TID PRN 07/05/24 07/19/24 (Benadryl Allergy) docosahexaenoic acid 200 mg mg PO 07/05/24 07/19/24 capsule ( DHA) labetalol 100 mg tablet 100 mg PO BID 07/05/24 07/19/24 Previous Rx's Medication Instructions Recorded nifedipine 30 mg tablet,extended 30 mg PO DAILY #30 tabs 06/22/24 release amoxicillin 875 mg-potassium 1 tab PO BID #14 tabs 07/22/24 clavulanate 125 mg tablet Allergies Allergy/AdvReac Type Severity Reaction Status Date / Time No Known Allergies Allergy Verified 07/22/24 12:56 Review of Systems Const: Denies: fever(s) Card: Denies: chest pain Resp: Denies: dyspnea GI: Denies: abdominal pain, nausea, vomiting or diarrhea Musc: Denies: neck pain, back pain, extremity pain, extremity swelling, joint pain or joint swelling Skin/Breast: Reports: other (small bite dorsum L hand) Neuro: Denies: numbness in extremities, weakness in extremities or sensory changes PFSH ED PFSH: Medical History Hypertension Diagnosed with gestational hypertension in her 2020 which remained after delivery; she has not been compliant with consistent medication therapy No pertinent past medical history Denies diabetes, asthma, hypertension, seizures, DVT/PE PCP: Dr. Cisneros Surgical History No history of previous surgery Family History Grandmother Diabetes paternal Family/Other Uterine cancer maternal great aunt, diagnosed in her 50s Denies family history of Colon cancer Ovarian cancer Heart disease Hyperlipidemia Breast cancer Hypertension Thyroid disease Stroke Social History Smoking and tobacco/nicotine status: never used tobacco/nicotine Physical Exam Const: COMMON NORMALS: no acute distress, average body habitus, patient oriented x3, no limitations, healthy appearing, alert and well nourished Extremity: COMMON NORMALS: full ROM GENERAL: Yes normal exam except as noted LEFT UPPER EXTREMITY: Yes hand & digits (small bite to dorsum of L hand; scant surrounding erythema; no edema) Left hand and digits: Yes ROM (full/normal ROM), Yes neurovascular exam (normal) and Yes other (no streaking) Neuro: COMMON NORMALS: patient oriented x3 SENSORIUM/ORIENTATION: Yes alert Course Vital Signs: Vital signs: Vital Signs Temperature 98.2 F 07/22/24 12:50 Pulse Rate 90 07/22/24 12:50 Respiratory Rate 16 07/22/24 12:50 Blood Pressure 122/58 07/22/24 12:50 Pulse Oximetry 98 07/22/24 12:50 Oxygen Delivery Me thod Room Air 07/22/24 12:50 MDM - Animal Bite Medical Decision Making Will update tetanus. Patient started on rabies PEP. Augmentin will be called into her pharmacy on file. Return to ED precautions given. Differential Diagnosis Likely bite by animal and dog bite Medical Records I reviewed the patient's medical records. No radiology studies performed this visit Discharge Plan Discharge Patient Disposition: Home Clinical Impression: Dog bite of left hand Qualifiers: Encounter type: initial encounter Qualified Code(s): S61.452A - Open bite of left hand, initial encounter Condition: Stable Prescriptions: New amoxicillin-pot clavulanate 875-125 mg tablet 1 tab PO BID Qty: 14 0RF No Action nifedipine 30 mg tablet extended release 30 mg PO DAILY Qty: 30 0RF acetaminophen [Tylenol] 325 mg tablet 325 mg PO QID PRN diphenhydramine HCl [Benadryl Allergy] 25 mg tablet 25 mg PO TID PRN DHA 200 mg capsule PO labetalol 100 mg tablet 100 mg PO BID Discharge Orders: Discharge ED (Routine); Ordered 07/22/24 Ordered By: Gem Márquez Referrals: Socrates Cisneros MD [Primary Care Provider] - Patient Instructions: Rabies Vaccine (By injection), Rabies Immune Globulin (By injection), Animal Bite (ED) Activity Restrictions/Additional Instructions: As we discussed, monitor for signs of infection such as worsening pain, redness, purulent drainage, streaking up your hand or arm, or fevers. Please seek medical reevaluation if these occur. At time of discharge, you should have received a schedule for the remainder of your rabies immunizations to be completed at our infusion center. Coding Level of Care Code ED Dynamite Packing Machine Operator for Vane Santizo
[2024-07-22] MEDS: tetanus-dipt-pertussis 0.5 mL SDV IM (13:21)
[2024-07-22] MEDS: rabies vaccine 2.5 unit SDV IM (13:26)
[2024-07-22] MEDS: rabies IG 300 unit/mL SDV 1 mL 1530 UNIT IM (13:29)
[2024-07-22 13:45] VITALS: BP 138/79; PULSE 89; RESP 16; O2SAT 98
== END 2024-07-22 13:47 | disposition home or self-care (01) ==
PROVIDERS: Emergency Provider Physician Assistant; PCP Family Medicine
DX: O9A.212 Injury, poisoning and certain other consequences of external causes complicating pregnancy, second trimester (principal); S61.452A Open bite of left hand, initial encounter; Z3A.15 15 weeks gestation of pregnancy; W54.0XXA Bitten by dog, initial encounter; Z20.3 Contact with and (suspected) exposure to rabies; Z29.14 Encounter for prophylactic rabies immune globulin; Z23 Encounter for immunization
CPT/HCPCS: 90375; 90471; 90675; 90715; 99283

== ENCOUNTER 2024-07-25 15:26 | Outpatient (CLI) | payer MEDICAID, SELFPAY ==
[2024-07-25 16:24] LABS: Total Volume, Urine 1200 mL
[2024-07-25 16:32] LABS: Urine Total Protein 9.5 mg/dL (0-150)
== END 2024-07-25 15:27 | disposition home or self-care (01) ==
LOC: LAB 15:27
PROVIDERS: PCP Family Medicine; Visit Provider Nurse Practitioner Women's Health
DX: O09.291 Supervision of pregnancy with other poor reproductive or obstetric history, first trimester (principal); I10 Essential (primary) hypertension; O09.891 Supervision of other high risk pregnancies, first trimester
CPT/HCPCS: 84156

== ENCOUNTER 2024-08-05 10:00 | Oncology outpatient (recurring) (ONCR) | payer MEDICAID, SELFPAY ==
[2024-07-25] MEDS: rabies vaccine 2.5 unit SDV IM (15:54)
== END 2024-08-11 23:59 | disposition home or self-care (01) ==
PROVIDERS: PCP Family Medicine; Visit Provider Physician Assistant
DX: O09.899 Supervision of other high risk pregnancies, unspecified trimester; R79.89 Other specified abnormal findings of blood chemistry
CPT/HCPCS: 82105; 84315; 84443; 90471; 90675

== ENCOUNTER → 2024-09-05 14:17 | Outpatient (BNVA) | payer MEDICAID, SELFPAY | PROVIDERS: PCP Family Medicine; Visit Provider Nurse Practitioner Women's Health | DX: Z36.9 Encounter for antenatal screening, unspecified (principal) | CPT/HCPCS: 76805 ==

== ENCOUNTER → 2024-09-29 14:08 | Outpatient (BNVA) | payer MEDICAID, SELFPAY | PROVIDERS: PCP Family Medicine; Visit Provider Nurse Practitioner Women's Health | DX: O09.292 Supervision of pregnancy with other poor reproductive or obstetric history, second trimester (principal); O09.899 Supervision of other high risk pregnancies, unspecified trimester; I10 Essential (primary) hypertension | CPT/HCPCS: 82950; 84315; 87086 ==

== ENCOUNTER → 2024-10-24 15:02 | Outpatient (BNVA) | payer MEDICAID, SELFPAY | PROVIDERS: PCP Family Medicine; Referring Provider Obstetrics & Gynecology; Visit Provider Obstetrics & Gynecology | DX: O09.899 Supervision of other high risk pregnancies, unspecified trimester (principal); Z3A.28 28 weeks gestation of pregnancy | CPT/HCPCS: 76816; 84315 ==

== ENCOUNTER → 2024-10-25 08:50 | Outpatient (BNVA) | payer MEDICAID, SELFPAY | PROVIDERS: PCP Family Medicine; Visit Provider Obstetrics & Gynecology | DX: O99.810 Abnormal glucose complicating pregnancy (principal); O09.899 Supervision of other high risk pregnancies, unspecified trimester; Z3A.28 28 weeks gestation of pregnancy | CPT/HCPCS: 82951; 82952 ==

== ENCOUNTER → 2024-11-04 14:32 | Outpatient (BNVA) | payer MEDICAID, SELFPAY | PROVIDERS: PCP Family Medicine; Visit Provider Obstetrics & Gynecology | DX: O09.292 Supervision of pregnancy with other poor reproductive or obstetric history, second trimester (principal); O09.899 Supervision of other high risk pregnancies, unspecified trimester | CPT/HCPCS: 80053; 81000; 82570; 84156; 84315; 84550; 85025; 87086 ==

== ENCOUNTER 2024-11-09 09:03 | Outpatient (CLI) | payer MEDICAID, SELFPAY ==
[2024-11-09 10:27] LABS: Total Volume, Urine 1300 mL
[2024-11-09 10:39] LABS: Urine Total Protein 10.8 mg/dL (0-150); Urine Total Protein 24 Hour 140.4 mg/24hr (0-150)
== END 2024-11-09 09:04 | disposition home or self-care (01) ==
LOC: LAB 09:03
PROVIDERS: PCP Family Medicine; Visit Provider Obstetrics & Gynecology
DX: O09.292 Supervision of pregnancy with other poor reproductive or obstetric history, second trimester (principal)
CPT/HCPCS: 84156

== ENCOUNTER → 2024-11-21 11:16 | Outpatient (BNVA) | payer MEDICAID, SELFPAY | PROVIDERS: PCP Family Medicine; Visit Provider Obstetrics & Gynecology | DX: Z34.90 Encounter for supervision of normal pregnancy, unspecified, unspecified trimester (principal) | CPT/HCPCS: 76816; 84315 ==

== ENCOUNTER → 2024-12-06 13:40 | Outpatient (BNVA) | payer MEDICAID, SELFPAY | PROVIDERS: PCP Family Medicine; Visit Provider Nurse Practitioner Women's Health | DX: O09.893 Supervision of other high risk pregnancies, third trimester (principal) | CPT/HCPCS: 76819 ==

== ENCOUNTER 2024-12-06 15:38 | Outpatient (CLI) | payer MEDICAID, SELFPAY ==
[2024-12-06] VITALS (13 sets, daily range): BP systolic 134–180; BP diastolic 87–114; PULSE 76–104; RESP 16; BMI 27.1
[2024-12-06 17:46] LABS: Urine Creatinine 235 mg/dL (28-217)
[2024-12-06 17:47] LABS: UPRO/UCREAT Ratio 0.09 mg/mg CR; Urine Protein Random 22 mg/dL
[2024-12-06] MEDS: NIFEdipine 10 mg Capsule PO (18:06)
== END 2024-12-06 19:16 | disposition home or self-care (01) ==
LOC: OPOB 15:42 → OBGYN 15:43
PROVIDERS: PCP Family Medicine; Visit Provider Obstetrics & Gynecology
DX: O26.899 Other specified pregnancy related conditions, unspecified trimester (principal); Z3A.00 Weeks of gestation of pregnancy not specified
CPT/HCPCS: 36415; 59025; 82570; 84156; 84315; 99211

== ENCOUNTER 2024-12-09 14:25 | Outpatient (CLI) | payer MEDICAID, SELFPAY ==
[2024-12-09 14:25] VITALS: BMI 27.3
[2024-12-09 14:30] VITALS: BP 145/80; PULSE 84
[2024-12-09 14:51] VITALS: BP 130/74; PULSE 88
== END 2024-12-09 14:55 | disposition home or self-care (01) ==
LOC: OPOB 14:27 → OBGYN 14:28
PROVIDERS: PCP Family Medicine; Visit Provider Obstetrics & Gynecology
DX: O16.9 Unspecified maternal hypertension, unspecified trimester (principal); Z3A.00 Weeks of gestation of pregnancy not specified
CPT/HCPCS: 59025; 99211

== ENCOUNTER 2024-12-13 15:50 | Outpatient (CLI) | payer MEDICAID, SELFPAY ==
[2024-12-13 15:50] VITALS: BMI 27.2
[2024-12-13 15:58] VITALS: BP 137/90; PULSE 88
[2024-12-13 16:13] VITALS: BP 132/82; PULSE 86
[2024-12-13 16:28] VITALS: BP 137/88; PULSE 89
== END 2024-12-13 16:43 | disposition home or self-care (01) ==
LOC: OPOB 15:54 → OBGYN 15:54
PROVIDERS: PCP Family Medicine; Visit Provider Obstetrics & Gynecology
DX: O16.9 Unspecified maternal hypertension, unspecified trimester (principal); Z3A.00 Weeks of gestation of pregnancy not specified
CPT/HCPCS: 76816; 76819

== ENCOUNTER → 2024-12-19 13:38 | Outpatient (BNVA) | payer MEDICAID, SELFPAY | PROVIDERS: PCP Family Medicine; Visit Provider Obstetrics & Gynecology | DX: O09.893 Supervision of other high risk pregnancies, third trimester (principal) | CPT/HCPCS: 76819 ==

== ENCOUNTER 2024-12-19 14:55 | Outpatient (CLI) | payer MEDICAID, SELFPAY ==
[2024-12-19] VITALS (8 sets, daily range): BP systolic 124–151; BP diastolic 87–97; PULSE 85–93; RESP 16; TEMP 35.7; BMI 27.3
[2024-12-19 16:46] LABS: Bilirubin Urine Negative (Negative); Blood Urine Negative (Negative); Glucose Urine UA Negative (Normal); Ketones Urine Trace (Negative); Leukocyte Esterase Urine 1+ (Negative); Nitrate Urine Negative (Negative); Protein Urine 1+ (Negative); Specific Gravity, Urine 1.026 (1.005-1.030); Urine Appearance Cloudy (CLEAR); Urine Color Dark Yellow (Yellow)
[2024-12-19 16:51] LABS: Add Urine Microscopic? YES; Bacteria Urine None Seen /hpf; Hyaline Casts Urine 4.11 /lpf
[2024-12-19 17:22] LABS: Basophils % 0.2 %; Eosinophils # 0.1 10^3/uL (0.0-0.8); Eosinophils % 0.7 %; Hematocrit 34.4 % (36-47); Lymphocytes # 1.4 10^3/uL (0.8-4.8); Lymphocytes % 14.6 %; Mean Corpuscular HGB Conc 32.8 g/dL (30-55); Mean Corpuscular Hemoglobin 29.5 pg (27-33); Mean Corpuscular Volume 89.8 fl (85-98); Mean Platelet Volume 10.5 fL (7.4-10.4); Monocytes # 0.6 10^3/uL (0.2-0.9); Monocytes % 5.7 %; Neutrophils # 7.53 10^3/uL (1.8-7.7); Neutrophils % 78.2 %; Nucleated Red Blood Cells % 0 %; Platelet Count 220 10^3/cmm (157-399); Red Blood Count 3.83 10^6/uL (3.85-5.65); Red Cell Distribution Width 13.2 % (12.1-15.1); White Blood Count 9.64 10^3/uL (3.29-11.43)
[2024-12-19 17:24] LABS: Urine Creatinine 274 mg/dL (28-217)
[2024-12-19 17:25] LABS: UPRO/UCREAT Ratio 0.13 mg/mg CR; Urine Protein Random 36 mg/dL
[2024-12-19 17:31] LABS: UA Slide Review UA Slide Review Perf
[2024-12-19 17:34] LABS: Add Urine Culture? No
[2024-12-19 17:38] LABS: Alanine Aminotransferase 11 U/L (0-33); Albumin Level 3.7 g/dL (3.5-5.2); Alkaline Phosphatase 134 U/L (35-105); Anion Gap 16.2 (5-19); Aspartate Amino Transferase 15 U/L (0-32); Blood Urea Nitrogen 10 mg/dL (6-20); Calcium 9.2 mg/dL (8.5-10.5); Carbon Dioxide 23 mmol/L (22-29); Chloride 103 mmol/L (98-107); Globulin 3.3 g/dL (1.3-4.6); Glomerular Filtration Rate 117.4 mL/min (90-130); Glucose 96 mg/dL (65-115); Osmolality Calculated 285 mOsm/kg (285-295); Potassium 4.2 mmol/L (3.5-5.1); Sodium 138 mmol/L (136-145); Total Bilirubin 0.4 mg/dL (0.15-1.2)
== END 2024-12-19 17:48 | disposition home or self-care (01) ==
LOC: OPOB 14:56 → OBGYN 14:57
PROVIDERS: Obstetrics & Gynecology; PCP Family Medicine; Visit Provider Obstetrics & Gynecology
DX: O16.9 Unspecified maternal hypertension, unspecified trimester (principal); Z3A.00 Weeks of gestation of pregnancy not specified
CPT/HCPCS: 36415; 59025; 80053; 81001; 82570; 84156; 84315; 84550; 85025; 87081

== ENCOUNTER 2024-12-21 01:30 | Observation (INO) | payer MEDICAID, SELFPAY ==
[2024-12-20 23:15] VITALS: BMI 27.6
[2024-12-20 23:30] VITALS: BP 180/114; PULSE 90
[2024-12-20 23:46] VITALS: BP 171/108; PULSE 90
[2024-12-21] VITALS (13 sets, daily range): BP systolic 108–163; BP diastolic 58–109; PULSE 82–102; RESP 18; TEMP 36.6–36.8
[2024-12-21 00:23] LABS: Basophils % 0.2 %; Eosinophils # 0.1 10^3/uL (0.0-0.8); Eosinophils % 0.4 %; Hematocrit 33.1 % (36-47); Lymphocytes # 1.8 10^3/uL (0.8-4.8); Lymphocytes % 15.5 %; Mean Corpuscular HGB Conc 33.5 g/dL (30-55); Mean Corpuscular Hemoglobin 29.7 pg (27-33); Mean Corpuscular Volume 88.5 fl (85-98); Mean Platelet Volume 10.2 fL (7.4-10.4); Monocytes # 0.7 10^3/uL (0.2-0.9); Monocytes % 6.1 %; Neutrophils % 77.3 %; Nucleated Red Blood Cells % 0 %; Platelet Count 233 10^3/cmm (157-399); Red Blood Count 3.74 10^6/uL (3.85-5.65); White Blood Count 11.64 10^3/uL (3.29-11.43)
[2024-12-21 00:24] LABS: Bilirubin Urine Negative (Negative); Blood Urine Trace (Negative); Glucose Urine UA Negative (Normal); Ketones Urine Negative (Negative); Leukocyte Esterase Urine 3+ (Negative); Nitrate Urine Negative (Negative); Protein Urine Negative (Negative); Specific Gravity, Urine 1.014 (1.005-1.030); Urine Appearance Cloudy (CLEAR); Urine Color Yellow (Yellow); pH Urine 6.5 (5-7)
[2024-12-21 00:29] LABS: Add Urine Microscopic? YES; Bacteria Urine 4+ /hpf; Hyaline Casts Urine 4.52 /lpf; WBC Urine >100 /hpf (0-5)
[2024-12-21 00:35] LABS: Add Urine Culture? Yes
[2024-12-21 00:36] LABS: Alanine Aminotransferase 10 U/L (0-33); Albumin Level 3.5 g/dL (3.5-5.2); Alkaline Phosphatase 132 U/L (35-105); Anion Gap 17.4 (5-19); Aspartate Amino Transferase 15 U/L (0-32); Blood Urea Nitrogen 10 mg/dL (6-20); Calcium 8.6 mg/dL (8.5-10.5); Carbon Dioxide 19 mmol/L (22-29); Chloride 103 mmol/L (98-107); Creatinine Clr Calc Pharmacy 111.8312; Globulin 3.4 g/dL (1.3-4.6); Glomerular Filtration Rate 84.2 mL/min (90-130); Glucose 91 mg/dL (65-115); Osmolality Calculated 281 mOsm/kg (285-295); Potassium 3.4 mmol/L (3.5-5.1); Sodium 136 mmol/L (136-145); Total Bilirubin 0.5 mg/dL (0.15-1.2); Total Protein 6.9 g/dL (6.6-8.7); Uric Acid 6.8 mg/dL (2.4-5.7)
[2024-12-21 00:40] LABS: UPRO/UCREAT Ratio 0.14 mg/mg CR; Urine Creatinine 78 mg/dL (28-217); Urine Protein Random 11 mg/dL
[2024-12-21] MEDS: betamethasone susp 6 mg/mL 1 mL (per mL) 12 MG IM (01:49)
--- NOTE | 2024-12-21 03:00 | PC.NURSE ---
Vertex presentation sono'ed at bedside. Confirmed by Nataliia Dutton, RN and Porsha Henriquez RN
[2024-12-21] MEDS: NIFEdipine 10 mg Capsule 30 MG PO (07:07)
== END 2024-12-21 08:45 | disposition home or self-care (01) ==
LOC: OPOB 01:32 → OBGYN 01:32
PROVIDERS: Admitting Provider Obstetrics & Gynecology; PCP Family Medicine; Visit Provider Obstetrics & Gynecology
DX: O16.9 Unspecified maternal hypertension, unspecified trimester (principal); Z3A.00 Weeks of gestation of pregnancy not specified
CPT/HCPCS: 36415; 59025; 80053; 81001; 82570; 84156; 84550; 85025; 96372; 99211; G0378; J0702; J9999

== ENCOUNTER 2024-12-21 23:31 | Outpatient (CLI) | payer MEDICAID, SELFPAY ==
[2024-12-21 23:46] VITALS: BMI 27.8
[2024-12-21] MEDS: betamethasone susp 6 mg/mL 1 mL (per mL) 12 MG IM (23:55)
== END 2024-12-21 23:58 | disposition home or self-care (01) ==
LOC: OPOB 23:32 → OBGYN 23:35
PROVIDERS: PCP Family Medicine; Visit Provider Obstetrics & Gynecology
DX: O26.899 Other specified pregnancy related conditions, unspecified trimester (principal); Z3A.00 Weeks of gestation of pregnancy not specified
CPT/HCPCS: 96372; J0702

== ENCOUNTER → 2024-12-26 12:48 | Outpatient (BNVA) | payer MEDICAID, SELFPAY | PROVIDERS: PCP Family Medicine; Visit Provider Obstetrics & Gynecology | DX: O09.899 Supervision of other high risk pregnancies, unspecified trimester (principal); I10 Essential (primary) hypertension | CPT/HCPCS: 76819; 84315 ==

== ENCOUNTER 2024-12-31 07:20 | Inpatient (IN) | payer MEDICAID, SELFPAY ==
[2024-12-31] VITALS (64 sets, daily range): BP systolic 122–171; BP diastolic 70–113; PULSE 74–98; RESP 17–18; TEMP 36.3–36.7; BMI 27.7
[2024-12-31 08:31] LABS: Basophils % 0.3 %; Bilirubin Urine Negative (Negative); Blood Urine Trace (Negative); Eosinophils % 0.6 %; Glucose Urine UA Negative (Normal); Hematocrit 34.1 % (36-47); Ketones Urine Negative (Negative); Leukocyte Esterase Urine Trace (Negative); Lymphocytes # 1.7 10^3/uL (0.8-4.8); Lymphocytes % 24.3 %; Mean Corpuscular HGB Conc 32.6 g/dL (30-55); Mean Corpuscular Hemoglobin 29.2 pg (27-33); Mean Corpuscular Volume 89.7 fl (85-98); Mean Platelet Volume 10.5 fL (7.4-10.4); Monocytes # 0.6 10^3/uL (0.2-0.9); Monocytes % 8.3 %; Neutrophils # 4.58 10^3/uL (1.8-7.7); Neutrophils % 65.5 %; Nitrate Urine Negative (Negative); Nucleated Red Blood Cells % 0 %; Platelet Count 218 10^3/cmm (157-399); Protein Urine Negative (Negative); Specific Gravity, Urine 1.017 (1.005-1.030); Urine Appearance Clear (CLEAR); Urine Color Yellow (Yellow); White Blood Count 6.99 10^3/uL (3.29-11.43); pH Urine 6.5 (5-7)
[2024-12-31 08:36] LABS: Add Urine Microscopic? YES; Bacteria Urine 1+ /hpf
[2024-12-31 08:48] LABS: Urine Creatinine 66 mg/dL (28-217); Urine Protein Random 15 mg/dL
[2024-12-31 08:50] LABS: UPRO/UCREAT Ratio 0.23 mg/mg CR
[2024-12-31] MEDS: ampicillin 2,000 MG in sodium chloride 0.9% (plus) 50 ML 100 MG IV (09:03)
[2024-12-31] MEDS: dextrose 5%-lactated ringers 1,000 ML 125 ML IV (09:03)
[2024-12-31] MEDS: magnesium sulfate premix 4 GM/100 ML PREMIX IV (09:04)
[2024-12-31 09:12] LABS: Alanine Aminotransferase 11 U/L (0-33); Albumin Level 3.6 g/dL (3.5-5.2); Alkaline Phosphatase 133 U/L (35-105); Anion Gap 15.6 (5-19); Aspartate Amino Transferase 15 U/L (0-32); Blood Urea Nitrogen 13 mg/dL (6-20); Calcium 8.6 mg/dL (8.5-10.5); Carbon Dioxide 20 mmol/L (22-29); Chloride 101 mmol/L (98-107); Globulin 3.2 g/dL (1.3-4.6); Glomerular Filtration Rate 98.3 mL/min (90-130); Glucose 99 mg/dL (65-115); Osmolality Calculated 276 mOsm/kg (285-295); Potassium 3.6 mmol/L (3.5-5.1); Sodium 133 mmol/L (136-145); Total Bilirubin 0.4 mg/dL (0.15-1.2); Total Protein 6.8 g/dL (6.6-8.7); Uric Acid 6.4 mg/dL (2.4-5.7)
[2024-12-31] MEDS: alum-mag-hydroxide-sime 30 mL UDC PO (09:16)
[2024-12-31] MEDS: miSOPROStol 100 mcg tablet 25 MCG VAGINAL ×3 (09:32→19:45)
[2024-12-31] MEDS: magnesium sulfate premix 20 GM/500 ML BAG IV ×2 (09:41→18:00)
--- NOTE | 2024-12-31 12:59 | PM.OPHPUD ---
Labor & Delivery H&P Update Date of Procedure: December 31, 2024 Date H&P Performed: 12/26/24 H&P update information: I have reviewed H&P completed within last 30 days, I have examined patient prior to procedure and No changes to prior documentation Admission Diagnosis:
[2024-12-31] MEDS: ampicillin 1,000 MG in sodium chloride 0.9% (plus) 50 ML 100 MG IV ×3 (13:38→21:40)
[2024-12-31 14:00] LABS: Amphetamines Screen Urine Negative (Negative); Barbiturates Screen Urine Negative (Negative); Benzodiazepines Screen Urine Negative (Negative); Cocaine Screen Urine Negative (Negative); Opiate Screen Urine Negative (Negative); PCP Screen Urine Negative (Negative); THC Screen Urine Negative (Negative)
[2024-12-31 16:13] LABS: Magnesium Level (OB Only) 5.8 mg/dL (5.0-7.5)
[2024-12-31] MEDS: acetaminophen 325 mg Tablet 650 MG PO (16:41)
[2024-12-31] MEDS: labetalol 5 mg/mL SDV 20mL 20 MG IVP (18:46)
[2024-12-31] MEDS: fentaNYL 50 mcg/mL INJ 2mL IVP ×2 (19:44→22:48)
[2024-12-31 22:08] LABS: Magnesium Level (OB Only) 6.6 mg/dL (5.0-7.5)
[2024-12-31] MEDS: ondansetron 2 mg/ML SDV 2 mL 4 MG IVP (22:54)
[2025-01-01] VITALS (120 sets, daily range): BP systolic 80–190; BP diastolic 52–126; PULSE 64–90; RESP 14–16; TEMP 36.7–36.9; O2SAT 97–99
[2025-01-01] MEDS: hyDROXYzine 25 mg Capsule 50 MG PO (00:09)
[2025-01-01] MEDS: acetaminophen 325 mg Tablet 650 MG PO (00:09)
[2025-01-01] MEDS: fentaNYL 50 mcg/mL INJ 2mL IVP (01:46)
[2025-01-01] MEDS: ampicillin 1,000 MG in sodium chloride 0.9% (plus) 50 ML 100 MG IV (01:49)
[2025-01-01] MEDS: labetalol 5 mg/mL SDV 20mL 20 MG IVP (02:43)
--- NOTE | 2025-01-01 04:07 | PM.PN ---
Subjective Subjective: Mrs. Barron 29-year-old female with a term at 38+1 weeks, admitted for induction due to uncontrolled hypertension and preeclampsia. Vitals/I&O/Wt Last Vital Signs Temp 98.3 F 01/01/25 02:35 Pulse 70 01/01/25 03:58 Resp 16 01/01/25 01:46 BP 149/104 01/01/25 03:58 O2 Del Method Room Air 12/31/24 07:05 12/31/24 12/31/24 01/01/25 14:59 22:59 06:59 Intake Total 229.167 / 229.167 564.167 / 793.334 970.833 / 1764.167 Output Total 1750 / 1750 1470 / 3220 785 / 4005 Balance -1520.833 / -1520.833 -905.833 / -2426.666 185.833 / -2240.833 Weight last 48 hrs Weight 80.286 kg Physical Exam Narrative: GA: Alert and oriented ?3. Lungs: Clear to auscultation bilaterally. Heart: Regular rhythm and rate. Abdomen: Gravid, full the height equals dates, nontender. CENTER MEDICAL DIRECTOR: SVE; dilation: 9 cm, effacement: 100%, station: 0, presentation: Vertex, membranes: AROM clear. Extremities: no edema, no cyanosis, no calves pain. heart tracing: Basal rate: 120 bpm, Variability: moderate, Accelerations: present, Decelerations: absent, Contraction: q3min. Urinary Catheter Management: [place] Latex: Cath Placed During This Visit: yes Reason for Continuing Indwelling Catheter: Accurate Measurement of Urinary Output in Critically Ill Patients Urinary Catheter Date of Insertion: 12/31/24 Urinary Catheter Time of Insertion: 09:30 Data 12/31/24 07:56 12/31/24 08:48 A&P Assessment and plan (1) Preeclampsia complicating hypertension: Ms. Barron is a 29 year old with term . Admitted for induction have progressed adequately. heart tracing category 1, good scalp stimulation, AROM cleared (2) Hypertension affecting in third trimester: Plan Anticipate vaginal delivery PDMP PDMP Reviewed: Not Reviewed Attestations Medical Necessity Statement*: In my professional opinion per admitting diagnosis Coding Level of Care Code Acute Code for Chg Fwd Diagnoses Preeclampsia complicating hypertension O11.9 Hypertension affecting in third trimester O16.3
[2025-01-01] MEDS: magnesium sulfate premix 20 GM/500 ML BAG IV ×2 (04:09→13:56)
--- NOTE | 2025-01-01 04:25 | PM.DELIVERY ---
Delivery Note: Date of delivery: January 01, 2025 Pre-delivery diagnoses: Term Hypertension Superimposed preeclampsia Post-delivery diagnoses: Same Procedure: Spontaneous vaginal delivery Delivering Physician: Robinson Medellin MD Estimated blood loss (mL): 500 Findings: Term female infant, weight 3010 g, Apgars 8/9 Delivery: The patient was noted to be complete and pushing, so was placed in the dorsal lithotomy position, prepped and draped in the usual sterile fashion for a vaginal delivery. Pt. Noted to have epidural anesthesia. At [] the patient delivered a viable term female infant weighing 3010 g with scores of 8 and 9 at one and five minutes, respectively. The vertex was delivered spontaneously over intact perineum. The patient was asked to push and the head delivered spontaneously in the HERRERA position, over an intact perineum. A nuchal cord was checked and none noted. The anterior shoulder delivered easily and the posterior shoulder followed. The remainder of the infant was easily delivered and the oropharynx and nasopharynx was bulb suctioned. The infant was noted to have spontaneous cry and spontaneous movement of all four extremities. The cord was clamped x 2 and cut and noted to have 2 arteries and one vein. The was passed to the mother's abdomen where nursing personnel were in attendance. Cord blood was then obtained. The placenta delivered intact spontaneously/manual extraction and the uterus was explored. 20 units of Pitocin was placed in the IV bag to firm the uterus. Examination of the cervix and vaginal vault did not reveal any lacerations. Examination of the perineum showed no laceration. The patient tolerated this procedure well, and recovered in L&D with her infant in their LDR room. All sponge and needle counts were correct. Post-Delivery Status: Good and stable History History History 5 Term 2 1 Miscarriages/Ectopic 1 Living Children 3 A&P Assessment and plan (1) Term delivered: (2) Pre-eclampsia superimposed on chronic hypertension: Plan observation PDMP PDMP Reviewed: Not Reviewed Coding Level of Care Code Acute Code for Chg Fwd Diagnoses Term delivered O80 Pre-eclampsia superimposed on chronic hypertension O11.9
[2025-01-01] MEDS: oxytocin 30 UNIT/500 ML BAG 600 UNIT IV (04:33)
[2025-01-01] MEDS: miSOPROStol 200 mcg Tablet 800 MCG PR (04:42)
[2025-01-01] MEDS: tranexamic acid 1,000 MG/100 ML PREMIX 600 MG IV (04:46)
[2025-01-01 06:22] LABS: Magnesium Level (OB Only) 6.5 mg/dL (5.0-7.5)
[2025-01-01 06:42] LABS: Basophils % 0.2 %; Eosinophils % 0.1 %; Hematocrit 27.7 % (36-47); Lymphocytes # 1.1 10^3/uL (0.8-4.8); Lymphocytes % 6.5 %; Mean Corpuscular HGB Conc 32.1 g/dL (30-55); Mean Corpuscular Hemoglobin 29.2 pg (27-33); Mean Corpuscular Volume 90.8 fl (85-98); Mean Platelet Volume 10.1 fL (7.4-10.4); Monocytes # 0.6 10^3/uL (0.2-0.9); Monocytes % 3.8 %; Neutrophils # 14.73 10^3/uL (1.8-7.7); Neutrophils % 88.9 %; Nucleated Red Blood Cells % 0 %; Platelet Count 214 10^3/cmm (157-399); Red Blood Count 3.05 10^6/uL (3.85-5.65); Red Cell Distribution Width 13.2 % (12.1-15.1); White Blood Count 16.57 10^3/uL (3.29-11.43)
[2025-01-01] MEDS: citric acid-sodium citrate 30 mL UDC PO (08:29)
[2025-01-01] MEDS: famotidine 20 mg/2 mL INJ IVP (08:29)
[2025-01-01] MEDS: metoclopramide 5 mg/mL SDV 2 mL 10 MG IVP (08:30)
--- NOTE | 2025-01-01 08:55 | ANES.PREANE2 ---
Pre-Anesthetic Assessment Height/Weight: Height 5 ft 7 in Weight 177 lb Temp Pulse Resp BP Pulse Ox O2 Del Method 98.3 F 78 16 128/82 99 Room Air 01/01/25 02:35 01/01/25 08:48 01/01/25 01:46 01/01/25 08:48 01/01/25 08:26 12/31/24 07:05 Preop Diagnosis: Request for sterilization Operation Date: 01/01/25 09:40 Proposed Procedures p Post Bilateral Tubal Ligation(Bilateral) - Robinson Medellin MD Was Beta Jimena taken within 24 hours: N/A Was Clonidine taken within 24 hours: N/A Social No alcohol and No tobacco Exam alert, oriented x 3, clear to auscultation bilaterally and regular rate & rhythm Airway Submandibular: within normal limits Cervical ROM: within normal limits Mallampati: Class II Dentition: full Comments: Comments: Tongue ring in place, patient will remove Anesthetic Plan ASA status: 2 Anesthesia: General Other: No prior issues with anesthesia Patient was G5, now P4. Routine vaginal delivery without epidural Patient was induced due to uncontrolled hypertension, was on nifedipine and labetalol. Now on mag gtt. Immediately following delivery, patient's blood pressure dropped into the 80s/90s systolic. When they went to sit patient up patient blacked out . Patient's sister said that she thought she had seizure-like activity. Upon further questioning it appears patient probably experienced a vagal response with orthostatic hypotension. Vital stable this a.m. Labs reviewed and acceptable for procedure today Plan for GETA Medications/Allergies Home Medications ?Medication ?Instructions ?Recorded ?Confirmed ?Last Taken ?Type nifedipine 30 mg tablet,extended 30 mg PO DAILY #30 tabs 06/22/24 12/31/24 12/20/24 Rx release acetaminophen 325 mg tablet 325 mg PO QID PRN Pain 07/05/24 12/31/24 Unknown History (Tylenol) diphenhydramine HCl 25 mg tablet 25 mg PO TID PRN Pain, Mild 07/05/24 12/31/24 Unknown History (Benadryl Allergy) labetalol 100 mg tablet 100 mg PO BID 07/05/24 12/31/24 12/31/24 History vitamins no.119-iron 1 tab PO DAILY #90 tabs 08/05/24 12/31/24 12/31/24 Rx fumarate 29 mg-folic acid 1 mg tablet aspirin 81 mg chewable tablet 1 tab PO DAILY 12/21/24 12/31/24 12/20/24 History Allergies Allergy/AdvReac Type Severity Reaction Status Date / Time No Known Allergies Allergy Verified 12/31/24 12:04 Current Medications Generic Name Dose Route Start Last Admin Trade Name Freq PRN Reason Stop Dose Admin Acetaminophen 650 mg 12/31/24 08:18 01/01/25 00:09 Acetaminophen 325 Mg Tablet PO 650 mg Q6H PRN Administration Mild pain or temp > 100.4 Tranexamic Acid 1,000 mg in 100 mls @ 600 mls/hr 12/31/24 08:18 01/01/25 05:00 Tranexamic Acid IV Infused Q30M PRN Infusion BLEEDING Dextrose/Lactated Ringer's 1,000 mls @ 125 mls/hr 12/31/24 08:30 01/01/25 00:00 Dextrose 5%-Lactated Ringers IV 75 mls/hr .Q8H LAM Administration Magnesium Sulfate 20 gm in 500 mls @ 50 mls/hr 12/31/24 08:30 01/01/25 04:09 Magnesium Sulfate Premix IV 50 mls/hr .Q10H LAM Administration Labetalol HCl 20 mg 12/31/24 08:36 01/01/25 02:43 Labetalol 5 Mg/Ml Sdv 20ml IVP 20 mg PRN PRN Administration HYPERTENSION Protocol Ondansetron HCl 4 mg 12/31/24 08:18 12/31/24 22:54 Ondansetron 2 Mg/Ml Sdv 2 Ml IVP 4 mg Q4H PRN Administration NAUSEA AND VOMITING PFSH Anesthesia Medical History Hypertension Diagnosed with gestational hypertension in her 2020 which remained after delivery; she has not been compliant with consistent medication therapy No pertinent past medical history Denies diabetes, asthma, hypertension, seizures, DVT/PE PCP: Dr. Cisneros Surgical History No history of previous surgery Family History Grandmother Diabetes paternal Family/Other Uterine cancer maternal great aunt, diagnosed in her 50s Denies family history of Colon cancer Ovarian cancer Heart disease Hyperlipidemia Breast cancer Hypertension Thyroid disease Stroke Social History Smoking and tobacco/nicotine status: never used tobacco/nicotine Female Reproductive History : 5 Data Anesthesia 01/01/25 06:30 12/31/24 08:48 Short CBC 12/31/24 12/31/24 12/31/24 Range/Units 07:56 07:56 07:56 WBC 6.99 Cancelled (3.29-11.43) 10^3/uL Hgb 11.10 L Cancelled (11.27-16.99) g/dL Hct 34.1 L (36-47) % MCV (85-98) fl Plt Count (157-399) 10^3/cmm Neut % (Auto) % Neut # (Auto) (1.8-7.7) 10^3/uL 12/31/24 12/31/24 12/31/24 Range/Units 07:56 07:56 07:56 WBC (3.29-11.43) 10^3/uL Hgb (11.27-16.99) g/dL Hct Cancelled (36-47) % MCV 89.7 Cancelled (85-98) fl Plt Count 218 Cancelled (157-399) 10^3/cmm Neut % (Auto) 65.5 % Neut # (Auto) (1.8-7.7) 10^3/uL 12/31/24 12/31/24 01/01/25 Range/Units 07:56 07:56 06:30 WBC 16.57 H (3.29-11.43) 10^3/uL Hgb 8.90 L (11.27-16.99) g/dL Hct 27.7 L (36-47) % MCV 90.8 (85-98) fl Plt Count 214 (157-399) 10^3/cmm Neut % (Auto) Cancelled 88.9 % Neut # (Auto) 4.58 Cancelled 14.73 H (1.8-7.7) 10^3/uL BMP 12/31/24 08:48 Sodium 133 L Potassium 3.6 Chloride 101 Carbon Dioxide 20 L BUN 13 Creatinine 0.7 Glucose 99 Calcium 8.6 Liver Function 12/31/24 Range/Units 08:48 Total Bilirubin 0.4 (0.15-1.2) mg/dL AST 15 (0-32) U/L ALT 11 (0-33) U/L Alkaline Phosphatase 133 H (35-105) U/L Albumin 3.6 (3.5-5.2) g/dL Urine 12/31/24 Range/Units 07:56 Urine Color Yellow (Yellow) Urine Appearance Clear (CLEAR) Urine pH 6.5 (5-7) Ur Specific [place] 1.017 (1.005-1.030) Urine Protein Negative (Negative) Urine Glucose (UA) Negative (Normal) Urine Ketones Negative (Negative) Urine Nitrate Negative (Negative) Urine Bilirubin Negative (Negative) Ur Leukocyte Esterase Trace A (Negative) Urine RBC 3-5 (0-2) /hpf Urine WBC 6-10 (0-5) /hpf Blood Bank 12/31/24 07:56 Blood Type O Positive Rho(D) Type Rh positive Antibody Screen Negative Cardiac Studies: No Data to Display
[2025-01-01] MEDS: sodium chloride 0.9% 1,000 ML 75 ML IV (09:00)
--- NOTE | 2025-01-01 10:15 | P.OP_ITS ---
Operative Report Date of procedure: January 01, 2025 Pre-op diagnosis: Term delivered Desire permanent sterilization Chronic hypertension Superimposed preeclampsia Post-op diagnosis: same Procedure done: bilateral salpingectomy Specimens removed/disposition: Left the right fallopian tubes Surgeon: Robinson Medellin MD Estimated blood loss (mL): 5 IV fluids (mL): 300 Urine output (mL): 40 Complications: none Findings: larged uterus Procedure: The patient was informed of the risks and benefits of the procedure. Risks included but were not limited to bleeding, infection, and injury to internal organs. The patient was counseled on the risk of sterilization failure. The patient was informed that in the event a occurs the risk of ectopic is increased. The patient was counseled that bilateral tubal ligation is intended to be permanent and nonreversible. She was also counseled that there are nonpermanent forms of control available to her. The patient expressed understanding of the risks involved, all questions were answered, and the patient consented to the procedure. After assuring informed consent. The patient was taken to the operating room and general anesthesia administered. Time-out procedure was performed. A small, transverse, infraumbilical skin incision was made with a scalpel, and the incision was carried down through the underlying fascia until the peritoneum was identified and entered. The left fallopian tube was identified, brought into the incision and grasped with a Pa clamp. The tube was then followed out to the fimbria. The fallopian tube was grasped with a Pa clamp and brought on to the incision. Using the LigaSure fine Fusion device the left fallopian tube was clamped, seal and cut. The specimen was sent to pathology. Excellent hemostasis was noted, and the tube was returned to the abdomen. The same procedure was performed on the opposite fallopian tube. The fascia was then closed with O-Vicryl in a single layer. The skin was closed with 3-O Vicryl in a subcuticular fashion. The pat ient tolerated the procedure well. Needle and sponge counts were correct times 3.
--- NOTE | 2025-01-01 10:37 | PC.NURSE ---
IN OR at this time
--- NOTE | 2025-01-01 10:40 | ANE.PACU2 ---
Inpatient post-anesthesia follow up: Airway intact: Yes Vital signs: Temperature 98.1 F Pulse Rate 87 Respiratory Rate 16 Blood Pressure 137/80 Pulse Oximetry 98 Oxygen Delivery Me thod Room Air Oxygen Flow Rate Fraction of Inspir ed Oxygen Hydration adequate: Yes Nausea and vomiting: No Pain level: 1 Mental status: Baseline
[2025-01-01] MEDS: dextrose 5%-lactated ringers 1,000 ML 75 ML IV ×2 (13:56)
[2025-01-01] MEDS: lanolin oint 7 gm 1 APPLIC TOPICAL (13:56)
[2025-01-01] MEDS: docusate sodium 100 mg Capsule PO ×2 (13:58→20:15)
[2025-01-01] MEDS: benzocaine-menthol 78 gm Canister 1 SPRAY TOPICAL (13:58)
[2025-01-01] MEDS: ibuprofen 800 mg tablet PO (13:58)
[2025-01-01] MEDS: HYDROcodone-acetaminophen 5-325 mg Tablet PO ×2 (15:01→20:13)
[2025-01-01 16:56] LABS: Mean Corpuscular HGB Conc 32.3 g/dL (30-55); Mean Corpuscular Hemoglobin 29.7 pg (27-33); Mean Corpuscular Volume 91.9 fl (85-98); Mean Platelet Volume 10.2 fL (7.4-10.4); Platelet Count 216 10^3/cmm (157-399); Red Blood Count 2.83 10^6/uL (3.85-5.65); Red Cell Distribution Width 13.1 % (12.1-15.1); White Blood Count 13.36 10^3/uL (3.29-11.43)
[2025-01-01] MEDS: labetalol 200 mg Tablet 100 MG PO (20:13)
[2025-01-01 22:35] LABS: Magnesium Level (OB Only) 6.8 mg/dL (5.0-7.5)
[2025-01-01 22:47] LABS: Magnesium Level (OB Only) 6.7 mg/dL (5.0-7.5)
[2025-01-02] VITALS (39 sets, daily range): BP systolic 119–173; BP diastolic 66–102; PULSE 69–88; RESP 16; TEMP 36.7–37.1; O2SAT 98
[2025-01-02] MEDS: magnesium sulfate premix 20 GM/500 ML BAG IV (00:07)
[2025-01-02] MEDS: ibuprofen 800 mg tablet PO ×2 (09:40→15:57)
[2025-01-02] MEDS: PRENATAL VIT NO.130/IRON/FOLIC 1 EACH TABLET PO (09:41)
[2025-01-02] MEDS: docusate sodium 100 mg Capsule PO (09:41)
[2025-01-02] MEDS: labetalol 200 mg Tablet 100 MG PO ×2 (09:41→19:24)
[2025-01-02] MEDS: HYDROcodone-acetaminophen 5-325 mg Tablet PO (11:11)
--- NOTE | 2025-01-02 16:11 | PM.OBGYDC ---
Discharge Providers SPEECH PATHOLOGY ASSISTANT Date of Admission: 12/31/24 07:20 Date of Discharge: 01/02/25 Attending Provider at Admission: Robinson Medellin MD Attending Provider at Discharge: Robinson Medellin MD Primary SPEECH PATHOLOGY ASSISTANT: Robinson Medellin MD Primary Care Provider: Socrates Cisneros MD Diagnoses at Discharge Discharge Diagnosis (1) Term delivered: Status: Acute (2) Pre-eclampsia superimposed on chronic hypertension: Status: Acute Reason for Visit Reason for Visit: IOL Hospital Course Hospital Course Mrs. Martinez 29-year-old female G5, P4, with an estimated stational age at 38 weeks admitted to labor and delivery for induction due to uncontrolled hypertension with superimposed severe preeclampsia. Induction was started with misoprostol for cervical ripening. She progressed to have a spontaneous vaginal delivery of a term female with a birthweight of 3010 g and of 7/9. She had requested permanent sterilization and a bilateral salpingectomy was performed without complication. She is afebrile and hemodynamically stable /postoperative day 1. Tolerating diet well. Ambulating without difficulty. She had completed 24 hours of magnesium sulfate with proper diuresis. She was counseled regarding pelvic rest for 6 weeks (no sex, no tampons, no vaginal douches). Return to the emergency room if any fever, increased bleeding or pain. She was also instructed to follow-up in 2 weeks to monitor blood pressure and incision check. Information Peripartum Data: Infant Delivery Method: Vaginal Physical Exam Narrative: GA; alert and oriented x 3 HEENT: normal Breasts: engorged Nipples - skin intact Lungs; clear to auscultation Heart: regular rhythm, no murmurs. Abd: Appropriately tender. BS+. Uterine fundus below umbilicus. No Fundal Tenderness, minimal tenderness, incision clean and dry, no redness, pain or edema Perineum: normal lochia. Extremities: no edema, no cyanosis, no tenderness. Urinary Catheter Management: [place] Latex: Cath Placed During This Visit: yes, but has since been removed by the nurse Reason for Continuing Indwelling Catheter: Other Urinary Catheter Date of Insertion: 12/31/24 Urinary Catheter Time of Insertion: 09:30 Date Urinary Catheter Removed: 01/01/25 Time Urinary Catheter Discontinued: 04:12 [place]: Cath Placed During This Visit: yes, but has since been removed by the nurse Reason for Continuing Indwelling Catheter: Decision to DC Catheter Date Urinary Catheter Removed: 01/02/25 Time Urinary Catheter Discontinued: 07:45 History History History 5 Term 2 1 Miscarriages/Ectopic 1 Living Children 3 Discharge Data Studies Completed and Pending Pending at discharge Category Date Time Status Pathology: Surgical [PTH] Routine Pth 01/01/25 11:19 Received Laboratory Results WBC 13.36 10^3/uL (3.29-11.43) H 01/01/25 16:20 Corrected WBC Cancelled 12/31/24 07:56 RBC 2.83 10^6/uL (3.85-5.65) L 01/01/25 16:20 Hgb 8.40 g/dL (11.27-16.99) L 01/01/25 16:20 Hct 26.0 % (36-47) L 01/01/25 16:20 MCV 91.9 fl (85-98) 01/01/25 16:20 MCH 29.7 pg (27-33) 01/01/25 16:20 MCHC 32.3 g/dL (30-55) 01/01/25 16:20 RDW 13.1 % (12.1-15.1) 01/01/25 16:20 Plt Count 216 10^3/cmm (157-399) 01/01/25 16:20 MPV 10.2 fL (7.4-10.4) 01/01/25 16:20 Gran % Cancelled 12/31/24 07:56 Neut % (Auto) 88.9 % 01/01/25 06:30 Lymph % (Auto) 6.5 % 01/01/25 06:30 Frio % (Auto) 3.8 % 01/01/25 06:30 Eos % (Auto) 0.1 % 01/01/25 06:30 Baso % (Auto) 0.2 % 01/01/25 06:30 Neut # (Auto) 14.73 10^3/uL (1.8-7.7) H 01/01/25 06:30 Lymph # (Auto) 1.1 10^3/uL (0.8-4.8) 01/01/25 06:30 Frio # (Auto) 0.6 10^3/uL (0.2-0.9) 01/01/25 06:30 Eos # (Auto) 0.0 10^3/uL (0.0-0.8) 01/01/25 06:30 Baso # (Auto) 0.0 10^3/uL (0.0-0.1) 01/01/25 06:30 Absolute Gran (auto) Cancelled 12/31/24 07:56 Nucleated RBC % (auto) 0 % 01/01/25 06:30 Nucleated RBCs # 0.0 /100WBC 01/01/25 06:30 Sodium 133 mmol/L (136-145) L 12/31/24 08:48 Potassium 3.6 mmol/L (3.5-5.1) 12/31/24 08:48 Chloride 101 mmol/L (98-107) 12/31/24 08:48 Carbon Dioxide 20 mmol/L (22-29) L 12/31/24 08:48 Anion Gap 15.6 (5-19) 12/31/24 08:48 BUN 13 mg/dL (6-20) 12/31/24 08:48 Creatinine 0.7 mg/dL (0.5-0.9) 12/31/24 08:48 GFR Calculation 98.3 mL/min (90-130) 12/31/24 08:48 Glucose 99 mg/dL (65-115) 12/31/24 08:48 Calculated Osmolality 276 mOsm/kg (285-295) L 12/31/24 08:48 Uric Acid 6.4 mg/dL (2.4-5.7) H 12/31/24 08:48 Calcium 8.6 mg/dL (8.5-10.5) 12/31/24 08:48 Magnesium 6.7 mg/dL (5.0-7.5) 01/01/25 22:15 Total Bilirubin 0.4 mg/dL (0.15-1.2) 12/31/24 08:48 AST 15 U/L (0-32) 12/31/24 08:48 ALT 11 U/L (0-33) 12/31/24 08:48 Alkaline Phosphatase 133 U/L (35-105) H 12/31/24 08:48 Total Protein 6.8 g/dL (6.6-8.7) 12/31/24 08:48 Albumin 3.6 g/dL (3.5-5.2) 12/31/24 08:48 Globulin 3.2 g/dL (1.3-4.6) 12/31/24 08:48 Urine Color Yellow (Yellow) 12/31/24 07:56 Urine Appearance Clear (CLEAR) 12/31/24 07:56 Urine pH 6.5 (5-7) 12/31/24 07:56 Ur Specific [place] 1.017 (1.005-1.030) 12/31/24 07:56 Urine Protein Negative (Negative) 12/31/24 07:56 Urine Glucose (UA) Negative (Normal) 12/31/24 07:56 Urine Ketones Negative (Negative) 12/31/24 07:56 Urine Blood Trace (Negative) A 12/31/24 07:56 Urine Nitrate Negative (Negative) 12/31/24 07:56 Urine Bilirubin Negative (Negative) 12/31/24 07:56 Urine Urobilinogen 1.0 mg/dL (Negative) 12/31/24 07:56 Ur Leukocyte Esterase Trace (Negative) A 12/31/24 07:56 Urine RBC 3-5 /hpf (0-2) 12/31/24 07:56 Urine WBC 6-10 /hpf (0-5) 12/31/24 07:56 Ur Squamous Epith Cells 11-20 /hpf (0-5) H 12/31/24 07:56 Amorphous Sediment Not Reportable 12/31/24 07:56 Urine Bacteria 1+ /hpf (NONE) H 12/31/24 07:56 Hyaline Casts 0.40 /lpf 12/31/24 07:56 U Random Total Protein 15 mg/dL 12/31/24 07:56 Urine Creatinine 66 mg/dL (28-217) 12/31/24 07:56 Protein/Creatinin Ratio 0.23 mg/mg CR 12/31/24 07:56 Urine Opiates Screen Negative ng/mL (Negative) 12/31/24 07:56 Ur Barbiturates Screen Negative ng/mL (Negative) 12/31/24 07:56 Ur Phencyclidine Scrn Negative ng/mL (Negative) 12/31/24 07:56 Ur Amphetamines Screen Negative ng/mL (Negative) 12/31/24 07:56 U Benzodiazepines Scrn Negative ng/mL (Negative) 12/31/24 07:56 Urine Cocaine Screen Negative ng/mL (Negative) 12/31/24 07:56 U Marijuana (THC) Screen Negative ng/mL (Negative) 12/31/24 07:56 Blood Type O Positive 12/31/24 07:56 Rho(D) Type Rh positive 12/31/24 07:56 Antibody Screen Negative 12/31/24 07:56 Vitals Last Vital Signs Temp 98.1 F 01/02/25 09:45 Pulse 83 01/02/25 15:59 Resp 16 01/02/25 09:45 BP 141/81 01/02/25 15:59 Pulse Ox 98 01/01/25 10:40 O2 Del Method Room Air 01/02/25 09:45 Results Labs OB ([facility]): Obstetrics US 12/13/24 Obstetrics US/Biophysical Profile 12/26/24 Blood Type O Positive 12/31/24 Antibody Screen Negative 12/31/24 Hct 26.0 % (36-47) L 01/01/25 Hgb 8.40 g/dL (11.27-16.99) L 01/01/25 Rho(D) Type Rh positive 12/31/24 Plt Count 216 10^3/cmm (157-399) 01/01/25 Hep Bs Antigen Non-reactive (Nonreactive) 06/22/24 Hepatitis C Antibody Non-reactive (Nonreactive) 06/22/24 Rubella IgG Antibody 6.6 IU/mL (0.0-10.0) 06/22/24 RPR Nonreactive (Nonreactive) 06/22/24 HIV 1&2 Ab & HIV 1 Ag Non-reactive (Non-Reactiv) 06/22/24 TSH 0.78 uIU/mL (0.27-4.20) 08/05/24 Free T4 1.16 ng/dL (0.82-1.77) 07/08/24 C.trachomatis RNA (TMA) Not detected (NOT DETECTED) 02/05/24 N.gonorrhoeae RNA (TMA) Not detected (NOT DETECTED) 02/05/24 T. vaginalis Amp RNA Not detected (NOT DETECTED) 02/05/24 Chlamydia/GC Comment See note 02/05/24 Glucose 1 Hr 50 gm 139 mg/dL (85-140) 09/29/24 Gest Glucose Tolerance mg/dL 10/25/24 Uric Acid 6.4 mg/dL (2.4-5.7) H 12/31/24 Ser , Semi-Qnt 17458.00 mIU/mL 06/01/24 HCG, Qual Positive (Negative) H 06/01/24 Urine Opiates Screen Negative ng/mL (Negative) 12/31/24 Ur Barbiturates Screen Negative ng/mL (Negative) 12/31/24 Ur Phencyclidine Scrn Negative ng/mL (Negative) 12/31/24 Ur Amphetamines Screen Negative ng/mL (Negative) 12/31/24 U Benzodiazepines Scrn Negative ng/mL (Negative) 12/31/24 Urine Cocaine Screen Negative ng/mL (Negative) 12/31/24 U Marijuana (THC) Screen Negative ng/mL (Negative) 12/31/24 Micro Urine Specimen 11/04/24 Pap Smear Interpret See note 07/05/24 Discharge Plan Discharge Patient Disposition: Home Condition: Stable Prescriptions: New hydrocodone-acetaminophen 5-325 mg tablet 1 tab PO Q4H PRN (Reason: pain) Qty: 10 0RF acetaminophen 325 mg capsule 325 mg PO Q4H PRN (Reason: fever or pain) Qty: 60 0RF docusate sodium [Colace] 100 mg capsule 100 mg PO BID Qty: 60 0RF ferrous sulfate [Iron (ferrous sulfate)] 325 mg (65 mg iron) tablet 325 mg PO BID Qty: 60 0RF ibuprofen 800 mg tablet 800 mg PO TID PRN (Reason: pain) Qty: 60 0RF Continued nifedipine 30 mg tablet extended release 30 mg PO DAILY Qty: 30 0RF acetaminophen [Tylenol] 325 mg tablet 325 mg PO QID PRN (Reason: Pain) diphenhydramine HCl [Benadryl Allergy] 25 mg tablet 25 mg PO TID PRN (Reason: Pain, Mild) labetalol 100 mg tablet 100 mg PO BID PNV 119-iron fum-folic acid 29 mg iron- 1 mg tablet 1 tab PO DAILY Qty: 90 3RF aspirin [Baby Aspirin] 81 mg Tablet,Chewable 1 tab PO DAILY Discharge Orders: Discharge Order (Routine); Ordered 01/02/25 Ordered By: Robinson Medellin Discharge Diet: Low Salt Discharge Activity: Limit activity as instructed Patient Instructions: Depression (DC), Preeclampsia and Eclampsia After Delivery (GEN), Hemorrhage (DC), OB Discharge Report, OB Food/Drug Interaction Guide, OB Care at Home, Opioid Safety, OB Home Care, OB Vaginal Deliveries - [facility], Caring for Your Baby (GEN), Vaginal Delivery (GEN), Your [place]'s Appearance (GEN), Female Sterilization, Salpingectomy (GEN) Activity Restrictions/Additional Instructions: 1. Please call [facility] on next working day to make your post-operative and blood pressure monitoring appointment in 2 weeks. 2. Please stay home until you come back to the clinic on first post-hospatilization check up. 3. Please follow instructions on your medications CAREFULLY. 4. If you have abdominal incision, do not cover it unless dressing is necessary because of drainage. OK to shower, but avoid bath. Leave steri-strips until they fall off. If they are still on one week after surgery, you may remove them. 5. If you had vaginal surgery or vaginal repair, Dr. Medellin may instruct you to take SITZ bath. 6. Yellow, blood tinged odorous vaginal discharge is usually normal after hysterectomy or vaginal surgeries. 7. No SEXUAL INTERCOURSE, tampons, or douches until you are completely released from the post-operative care. 8. Avoid constipation by eating right and maybe using some Metamucil or Milk of Magnesia. 9. All prescription refills are given during the working hours. Please do no wait till it runs out. Call the clinic at [phone] before your medication runs out. The clinic will get in touch with your doctor to prescribe medications if necessary. 10. Please remain within 40 mile radius from our hospital because emergencies do happen now and then during the post-operative period. 11. If you have stairs at home, take one step at a time slowly and minimize the number of trips. It helps to stay in one floor for the next few days. No lifting except what you can lift by one hand until you are released from the post-operative care. 12. Driving is discouraged until you are well healed. It may be 3-4 weeks before you feel strong enough to drive. You should be able to turn and look through the rear window without pain and you should be able to push the brake pedal very hard without pain before you drive. No fast rules, but SAFETY should be your primary concern. DO NOT drive if you are on sedating medications such as narcotics. 13. Call the clinic (during working hours) to make urgent appointment or go to the Emergency room, if any of the following occurs: i. Vaginal bleeding becomes heavy, more than a period. ii. Incision becomes red and sore, or drains pus. iii. Your TEMPERATURE is over 100.4F or you have chill. iv. IV site becomes red and swollen (a little ``knot?? is usually OK) v. Persistent nausea and vomiting vi. Persistent constipation or diarrhea vii. Rash or allergic reaction to medications. Discharge Attestations SPEECH PATHOLOGY ASSISTANT Time Spent in Discharge Care*: greater than 30 min Coding Level of Care Code Acute Code for Chg Fwd Diagnoses Term delivered O80 Pre-eclampsia superimposed on chronic hypertension O11.9
[2025-01-02] MEDS: acetaminophen 325 mg Tablet 650 MG PO (19:23)
[2025-01-02] MEDS: measles,mumps,rubella pf Vial (w/diluent) 0.5 ML SUBCUT (19:27)
== END 2025-01-02 19:52 | disposition home or self-care (01) | DRG 798 ==
LOC: OPOB 07:21 → OBGYN 07:21
PROVIDERS: Admitting Provider Obstetrics & Gynecology; PCP Family Medicine; Visit Provider Obstetrics & Gynecology
PROC: (CPT 58605; principal; 2025-01-01 09:30)
DX: O14.94 Unspecified pre-eclampsia, complicating childbirth (principal); Z37.0 Single live birth; O16.4 Unspecified maternal hypertension, complicating childbirth; Z3A.38 38 weeks gestation of pregnancy
CPT/HCPCS: 36415; 51702; 58605; 59409; 80053; 80306; 81001; 82570; 83735; 84156; 84550; 85025; 85027; 86850; 86900; 88302; 90707; 96372; 96374; 96376; J0290; J0330; J1100; J2250; J2405; J2590; J2710; J2765; J3010; J3475; J3490; J7030; J7121; J9999

== ENCOUNTER → 2025-02-17 11:35 | Outpatient (BNVA) | payer MEDICAID, SELFPAY | PROVIDERS: PCP Family Medicine; Visit Provider Nurse Practitioner Women's Health | DX: O90.81 Anemia of the puerperium (principal) | CPT/HCPCS: 85025 ==

== ENCOUNTER → 2025-03-29 15:03 | Outpatient (BNVA) | payer MEDICAID, SELFPAY | PROVIDERS: PCP Family Medicine; Visit Provider Nurse Practitioner | DX: Z20.2 Contact with and (suspected) exposure to infections with a predominantly sexual mode of transmission (principal) | CPT/HCPCS: 81000; 81513; 87481; 87491; 87591; 87661 ==

== ENCOUNTER → 2025-07-13 15:31 | Outpatient (BNVA) | payer MEDICAID, SELFPAY | PROVIDERS: PCP Family Medicine; Visit Provider Obstetrics & Gynecology | DX: N89.8 Other specified noninflammatory disorders of vagina (principal); Z71.1 Person with feared health complaint in whom no diagnosis is made | CPT/HCPCS: 84443; 86592; 86706; 86803; 87806 ==